=== PATIENT | male | born 1990 | race Caucasian/White ===

== ENCOUNTER 2019-04-26 20:48 | Emergency (ER) | payer MEDICAID ==
[~2019-04-26] VITALS: Ht 180.3 cm; Wt 113.0 kg
[2019-04-26] MEDS ORDERED: normal saline 1000ML IV soln IVB ONE ×2 (21:00→21:45)
[2019-04-26 21:34] LABS: BASOPHILS % (AUTO) 0.4 % (0-1); EOSINOPHILS # (AUTO) 0.2 X10'3 (0-0.9); EOSINOPHILS % (AUTO) 1.7 % (0-6); HEMATOCRIT 46.7 % (42.0-52.0); HEMOGLOBIN 16.3 g/dl (14.0-17.9); LYMPHOCYTES # (AUTO) 4.1 X10'3 (1.1-4.8); LYMPHOCYTES % (AUTO) 44.6 % (21-51); MEAN CORPUSCULAR HEMOGLOBIN 30.7 PG (27.0-31.0); MEAN CORPUSCULAR HGB CONC 34.8 g/dL (33.0-36.5); MEAN CORPUSCULAR VOLUME 88.1 FL (78-98); MEAN PLATELET VOLUME 8.2 FL (7.4-10.4); MONOCYTES # (AUTO) 0.6 X10'3 (0-0.9); MONOCYTES % (AUTO) 6.5 % (2-12); NEUTROPHILS # (AUTO) 4.2 X10'3 (1.8-7.7); NEUTROPHILS % (AUTO) 46.8 % (42-75); PLATELET COUNT 323 X10'3 (140-440); RED CELL DISTRIBUTION WIDTH 13.4 % (11.5-14.5)
[2019-04-26] MEDS ORDERED: magnesium 2GM in 50ml NS 50 ML IV ONE (21:45)
[2019-04-26 21:55] LABS: ALANINE AMINOTRANSFERASE 54 U/L (12-78); ALBUMIN 3.8 G/DL (3.4-5.0); ALKALINE PHOSPHATASE 118 IU/L (46-116); ANION GAP 14 (8-16); ASPARTATE AMINO TRANSFERASE 46 U/L (10-37); BILIRUBIN,TOTAL 0.3 MG/DL (0.1-1.0); BLOOD UREA NITROGEN 6 MG/DL (7-18); BUN/CREATININE RATIO 6.6 (5.4-32.0); CALCIUM 8.4 MG/DL (8.5-10.1); CHLORIDE 106 MMOL/L (99-107); CREATININE 0.91 MG/DL (0.60-1.10); GLUCOSE 110 MG/DL (70-104); POTASSIUM 3.8 MMOL/L (3.5-5.1); SODIUM 144 MMOL/L (135-145); TOTAL CARBON DIOXIDE 23.8 MMOL/L (24-32); TOTAL PROTEIN 7.6 G/DL (6.4-8.2); eGFR > 90 ML/MIN
[2019-04-26 21:56] LABS: ETHANOL 0.387 GM/DL (0.0-0.010)
[2019-04-26 22:03] LABS: WHITE BLOOD COUNT 9.1 X10'3 (4.5-11.0)
--- NOTE | 2019-04-26 22:06 | NUR ---
Pt removed from 4pt restraints. Pt calm and sleeping at this time, VSS.
[2019-04-27 05:56] VITALS: BP 180/91
--- NOTE | 2019-04-27 05:57 | NUR ---
Per Dr Ledezma, no need for accucheck, BS in BMP resulted WDNL. Also stated no need to collect urine at this time.
[2019-04-27] MEDS ORDERED: BUSP10TA3 PO (10:33)
[2019-04-27] MEDS ORDERED: CETI10TA14 PO (10:33)
[2019-04-27] MEDS ORDERED: LISI10TA4 PO (10:33)
[2019-04-27] MEDS ORDERED: CITA40TA PO (10:34)
[2019-04-27] MEDS ORDERED: NALT5POW PO (12:13)
== END 2019-04-27 06:56 | disposition home or self-care (01) ==
LOC: ER 20:50
DX: F10.129 Alcohol abuse with intoxication, unspecified (principal); F32.9 Major depressive disorder, single episode, unspecified; F12.90 Cannabis use, unspecified, uncomplicated; Z79.899 Other long term (current) drug therapy; Y90.9 Presence of alcohol in blood, level not specified
CPT/HCPCS: 36415; 80053; 80320; 85025; 93005; 99284; J3475; J7030

== ENCOUNTER 2019-04-27 09:58 | Emergency (ER) | payer MEDICAID ==
[~2019-04-27] VITALS: Ht 188 cm; Wt 136.4 kg
[2019-04-27] MEDS ORDERED: LISI10TA4 PO (10:33)
[2019-04-27] MEDS ORDERED: BUSP10TA3 PO (10:33)
[2019-04-27] MEDS ORDERED: CETI10TA14 PO (10:33)
[2019-04-27] MEDS ORDERED: CITA40TA PO (10:34)
[2019-04-27] MEDS ORDERED: haloperidol lactate 5mg/ml inj IM PRN (11:05)
[2019-04-27] MEDS ORDERED: haloperidol 5mg tablet PO PRN (11:05)
[2019-04-27] MEDS ORDERED: LORazepam 2 mg/ml vial IV PRN (11:05)
[2019-04-27 11:11] LABS: BASOPHILS % (AUTO) 0.4 % (0-1); EOSINOPHILS # (AUTO) 0.1 X10'3 (0-0.9); EOSINOPHILS % (AUTO) 0.7 % (0-6); HEMATOCRIT 47.2 % (42.0-52.0); HEMOGLOBIN 16.1 g/dl (14.0-17.9); LYMPHOCYTES # (AUTO) 2.4 X10'3 (1.1-4.8); LYMPHOCYTES % (AUTO) 25.5 % (21-51); MEAN CORPUSCULAR HEMOGLOBIN 29.8 PG (27.0-31.0); MEAN CORPUSCULAR HGB CONC 34.1 g/dL (33.0-36.5); MEAN CORPUSCULAR VOLUME 87.6 FL (78-98); MEAN PLATELET VOLUME 8.1 FL (7.4-10.4); MONOCYTES # (AUTO) 0.4 X10'3 (0-0.9); MONOCYTES % (AUTO) 4.6 % (2-12); NEUTROPHILS # (AUTO) 6.5 X10'3 (1.8-7.7); NEUTROPHILS % (AUTO) 68.8 % (42-75); PLATELET COUNT 283 X10'3 (140-440); RED BLOOD COUNT 5.39 X10'6 (4.70-6.10); RED CELL DISTRIBUTION WIDTH 13.4 % (11.5-14.5); WHITE BLOOD COUNT 9.5 X10'3 (4.5-11.0)
[2019-04-27 11:27] LABS: CLARITY,URINE CLEAR (Clear); COLOR,URINE YELLOW (Yellow); GLUCOSE, URINE NEGATIVE (Neg); KETONES,URINE 15 mg/dl (Neg); LEUKOCYTE ESTERASE ,URINE NEGATIVE (Neg); NITRITES, URINE NEGATIVE (Neg); OCCULT BLOOD,URINE NEGATIVE (Neg); PH,URINE 6.5 (4.8-8.0); PROTEIN,URINE NEGATIVE (Neg); UA COLLECTION TYPE CLN CATCH MIDSTREAM; UROBILINOGEN,URINE 0.2 E.U/dL (0.2-1.0)
--- NOTE | 2019-04-27 11:27 | NUR ---
patient has been changed into green scrubs, belongings have been collected and placed into the ambulance bay locker. His girlfriend is visiting and they are talking quietly while she sits at the bedside.
[2019-04-27 11:30] LABS: ALANINE AMINOTRANSFERASE 51 U/L (12-78); ALBUMIN 3.8 G/DL (3.4-5.0); ALBUMIN/GLOBULIN RATIO 1.1 (1.1-1.5); ALKALINE PHOSPHATASE 107 IU/L (46-116); ANION GAP 18 (8-16); ASPARTATE AMINO TRANSFERASE 37 U/L (10-37); BILIRUBIN,TOTAL 0.3 MG/DL (0.1-1.0); BLOOD UREA NITROGEN 6 MG/DL (7-18); CALCIUM 8.5 MG/DL (8.5-10.1); CHLORIDE 108 MMOL/L (99-107); CREATININE 0.75 MG/DL (0.60-1.10); GLUCOSE 84 MG/DL (70-104); POTASSIUM 3.9 MMOL/L (3.5-5.1); SODIUM 147 MMOL/L (135-145); TOTAL CARBON DIOXIDE 21.2 MMOL/L (24-32); TOTAL PROTEIN 7.3 G/DL (6.4-8.2); eGFR > 90 ML/MIN
[2019-04-27 11:35] LABS: URINE AMPHETAMINE SCREEN NEGATIVE (Neg); URINE BARBITUATE SCREEN NEGATIVE (Neg); URINE BENZODIAZEPINES SCREEN NEGATIVE (Neg); URINE CANNABINOID SCREEN POSITIVE (Neg); URINE COCAINE SCREEN NEGATIVE (Neg); URINE METHADONE SCREEN NEGATIVE (Neg); URINE OPIATE SCREEN NEGATIVE (Neg); URINE PHENCYCLIDINE SCREEN NEGATIVE (Neg)
[2019-04-27 11:38] LABS: ETHANOL 0.112 GM/DL (0.0-0.010)
[2019-04-27] MEDS ORDERED: NALT5POW PO (12:13)
--- NOTE | 2019-04-27 12:24 | NUR ---
patient is laying on his right side, he appears to be sleeping.
--- NOTE | 2019-04-27 13:00 | NUR ---
patient is laying on his right side, appears to be asleep.
[2019-04-27] MEDS: busPIRone 5mg tablet PO SCH ×2 (14:58→23:16)
--- NOTE | 2019-04-27 15:12 | NUR ---
Medications given and taken willingly.
[2019-04-27] MEDS: LORazepam 1 MG tablet PO PRN ×2 (15:25→19:08)
--- NOTE | 2019-04-27 15:27 | NUR ---
Ativan 2mg PO given
--- NOTE | 2019-04-27 18:35 | NUR ---
Patient resting comfortably in bed. He denies SI at this time. He states that he feels overwhelmed by many factors but that his problem is ultimately related to his alcohol consumption. Patient states he drinks 1/5 of alcohol per day and has never had a seizure when going through withdrawls. Patient educated to notify me if he feels he is having any symptoms of alcohol withdrawl. Patient requests a meal which should arrive shortly. Patient updated on POC.
--- NOTE | 2019-04-27 19:09 | NUR ---
Patient complains of feeling anxious and requests meds. Ativan is provided.
--- NOTE | 2019-04-27 20:50 | NUR ---
Patient sleeping comfortably in a supine position with even and unlabored breathing.
--- NOTE | 2019-04-27 22:59 | NUR ---
Patient continues to sleep.
--- NOTE | 2019-04-28 00:45 | NUR ---
Patient continues to sleep.
--- NOTE | 2019-04-28 01:32 | NUR ---
Patient continues to sleep.
--- NOTE | 2019-04-28 03:29 | NUR ---
Patient sleeping on his right side.
[2019-04-28] MEDS: busPIRone 5mg tablet PO SCH ×3 (08:03→21:00)
[2019-04-28] MEDS: lisinopril 10 MG tablet PO SCH (08:04)
[2019-04-28] MEDS: citalopram 20mg tablet PO SCH (08:04)
[2019-04-28] MEDS: cetirizine 10mg tablet PO SCH (08:04)
[2019-04-28] MEDS: LORazepam 1 MG tablet PO PRN ×3 (08:39→15:15)
--- NOTE | 2019-04-28 09:00 | NUR ---
Medicated with ativan for shakyness.
--- NOTE | 2019-04-28 11:00 | NUR ---
Nurse to nurse given to Melani at [facility].
--- NOTE | 2019-04-28 13:00 | NUR ---
Sitting up in bed eating lunch.
--- NOTE | 2019-04-28 15:15 | NUR ---
Pt has been medicated with haldol, which he stated did not help. Ativan given.
--- NOTE | 2019-04-28 19:00 | NUR ---
This patient was sleeping at shift change. He awoke, rapidlyl ate his dinner, returned to sleep without interview.
--- NOTE | 2019-04-28 22:56 | NUR ---
Patient sleeping quietly. He is in view from nursing station. Q15 minute rounding being done for patient safety.
--- NOTE | 2019-04-29 07:00 | NUR ---
Pt resting quietly in bed without complaints.
[2019-04-29] MEDS: cetirizine 10mg tablet PO SCH (08:20)
[2019-04-29] MEDS: busPIRone 5mg tablet PO SCH ×3 (08:20→20:14)
[2019-04-29] MEDS: citalopram 20mg tablet PO SCH (08:20)
[2019-04-29] MEDS: lisinopril 10 MG tablet PO SCH (08:22)
--- NOTE | 2019-04-29 09:00 | NUR ---
Pt up for breakfast. Pt c/o shakiness from withdraw from alcohol. Pt received 1mg ativan. No further complaints.
[2019-04-29] MEDS: LORazepam 1 MG tablet PO PRN ×2 (09:02→20:14)
--- NOTE | 2019-04-29 11:00 | NUR ---
Pt laying in bed sleeping without complaints.
--- NOTE | 2019-04-29 13:00 | NUR ---
Pt laying on bed without complaints until just before now when he asked for his buspar which was ordered at 1300. He said he had anxiety.
--- NOTE | 2019-04-29 15:00 | NUR ---
Pt resting quietly in bed, reading; without complaints.
--- NOTE | 2019-04-29 17:00 | NUR ---
Pt visited with and children. Pt displayed appropriate affection towards all three. Pt now laying in bed reading a book without complaints.
--- NOTE | 2019-04-29 18:30 | NUR ---
Pt sitting up quetly reading in his bed. Pt is cooperative with assessment. He states he has not had a BM in 2 days but "I have not really eaten anything, dinner tonight was really the first meal I have had in awhile because when I go on benders I don't eat." PT denies feeling suicidal at this time "I am just mad at myself."
--- NOTE | 2019-04-29 21:00 | NUR ---
PT is medication compliant and requests PRN ativan 1mg which was given for anxiety. He states, "I still feel a little shaky from the withdrawl but it is getting much better. Patients VS are WNL. he uses the restroom.
--- NOTE | 2019-04-30 01:00 | NUR ---
Pt asleep on back, respirations WNL.
--- NOTE | 2019-04-30 03:26 | NUR ---
PT woke up and requested food, given a sandwhich and a cheesestick with a juice.
--- NOTE | 2019-04-30 06:30 | NUR ---
Patient observed resting comfortably in bed, no distress observed.
[2019-04-30] MEDS: naltrexone 50mg tablet PO SCH (08:47)
[2019-04-30] MEDS: cetirizine 10mg tablet PO SCH (08:47)
[2019-04-30] MEDS: lisinopril 10 MG tablet PO SCH (08:48)
[2019-04-30] MEDS: busPIRone 5mg tablet PO SCH ×3 (08:48→20:41)
[2019-04-30] MEDS: citalopram 20mg tablet PO SCH (08:49)
[2019-04-30] MEDS: LORazepam 1 MG tablet PO PRN ×4 (09:46→21:15)
--- NOTE | 2019-04-30 09:46 | NUR ---
Patient reports feeling anxious and sweaty, RN administered PO Ativan 1mg.
--- NOTE | 2019-04-30 12:00 | NUR ---
Patient is moved to another bed to accommodate new admits. With the unit full he reports increased anxiety and requests Ativan. RN provided education on alternatives, deep breathing, hot tea. Patient states that he would like to incorporate those types of things into his life.
--- NOTE | 2019-04-30 15:30 | NUR ---
Spoke with Angelica from [facility] office, reportreceived that she will contact [facility] to see if patient can transfer. Melania wants something stating he is not withdrawing from alcohol. KWESI filled out and faxed to [facility].
--- NOTE | 2019-04-30 18:41 | NUR ---
is spoke to pt, he is supine in bed, he states he is feeling ok, no thoughts of harming himself or others at this time, he is calm, is here to visit
--- NOTE | 2019-04-30 19:38 | NUR ---
pt girlfriend is at bedside, he is quietly talking to her, no s/s of distress observed
--- NOTE | 2019-04-30 20:41 | NUR ---
pt took medications without complaint, alycia, ativan, I told him that it is too early, he said ok, he can have at 2100.
--- NOTE | 2019-04-30 21:44 | NUR ---
pt is supine in bed, eyes closed, no s/s of distress observed, regular non labored breathing present
--- NOTE | 2019-04-30 22:42 | NUR ---
pt is resting on his right side, eyes closed, appears to be asleep, no s/s of distress observed, regular spontaneous breathing present
--- NOTE | 2019-04-30 23:39 | NUR ---
pt is laying on left side, eyes closed. appears to be sleeping no s/s of distress observed, regular breathing observed
--- NOTE | 2019-05-01 00:40 | NUR ---
pt appears to be asleep, eyes closed, regular, non labored breathing present, no s/s of distress observed
--- NOTE | 2019-05-01 01:37 | NUR ---
pt sleeping on left side, unlabored breathing
--- NOTE | 2019-05-01 02:31 | NUR ---
Patient sleeping on his right side with even unlabored breathing.
--- NOTE | 2019-05-01 03:14 | NUR ---
pt is asleep, no s/s of distress observed
--- NOTE | 2019-05-01 04:22 | NUR ---
pt is asleep, no s/s of distress observed, unlabored breathing
--- NOTE | 2019-05-01 05:31 | NUR ---
pt appears to be asleep. laying on right side, eyes closed, no s/s of distress observed
--- NOTE | 2019-05-01 06:05 | NUR ---
pt cooperative with vitals being taken no s/s of distress observed
--- NOTE | 2019-05-01 06:30 | NUR ---
Nursing Note: Pt laying in bed with eyes closed, RR even and unlabored, no S&S of distress, will continue to monitor.
--- NOTE | 2019-05-01 07:58 | NUR ---
Nursing Note: Pt laying in bed, eyes closed, RR even and unlabored, no S&S of distress, will continue to monitor.
[2019-05-01] MEDS: cetirizine 10mg tablet PO SCH (08:35)
[2019-05-01] MEDS: busPIRone 5mg tablet PO SCH ×3 (08:35→20:15)
[2019-05-01] MEDS: naltrexone 50mg tablet PO SCH (08:35)
[2019-05-01] MEDS: citalopram 20mg tablet PO SCH (08:35)
[2019-05-01] MEDS: lisinopril 10 MG tablet PO SCH (08:35)
[2019-05-01] MEDS: LORazepam 1 MG tablet PO PRN (09:47)
--- NOTE | 2019-05-01 10:10 | NUR ---
relieving RN for break, pt is resting quietly on gurney
--- NOTE | 2019-05-01 10:48 | NUR ---
Nursing Note: Pt laying in bed, RR even and unlabored, no S&S of distress, will continue to monitor.
[2019-05-01] MEDS ORDERED: LORazepam 1 MG tablet PO PRN (11:05)
--- NOTE | 2019-05-01 12:49 | NUR ---
Nursing Note: Pt has visitor at the bedside, quietly visiting. Pt expresses he feels anxious. RR even and unlabored, will continue to monitor.
--- NOTE | 2019-05-01 13:14 | NUR ---
Nursing Note: Nurse to nurse, VERENICE Fregoso [facility]. Will continue to monitor.
--- NOTE | 2019-05-01 13:28 | NUR ---
Nursing Note: Received call from [facility] office, pt acce Addendum: 05/01/19 at 1328 by RAVINDER Continue: Pt accepted at [facility], will continue to monitor.
[2019-05-01] MEDS ORDERED: NALT50TA PO (14:25)
--- NOTE | 2019-05-01 14:53 | NUR ---
Nursing Note: Pt sitting up in bed. RR even and unlabored, no S&S of distress, will continue to monitor.
--- NOTE | 2019-05-01 16:20 | NUR ---
Nursing Note: Pt laying in bed, no S&S of distress, will continue to monitor.
--- NOTE | 2019-05-01 17:51 | NUR ---
Nursing Note: Pt laying in bed on his back talking to the pt in the next bed. No S&S of distress, will continue to monitor.
--- NOTE | 2019-05-01 20:09 | NUR ---
pt laying in bed uncovered, in no apparent distress
--- NOTE | 2019-05-01 20:32 | NUR ---
Keerthi [facility] aide wheelchaired pt [facility] to [facility] with all of his belongings escorted by a java developer with security clearance
[2019-05-01 20:45] VITALS: BP 129/79
== END 2019-05-01 20:30 ==
LOC: ER 09:58
DX: F32.9 Major depressive disorder, single episode, unspecified (principal); F12.90 Cannabis use, unspecified, uncomplicated; F10.10 Alcohol abuse, uncomplicated; Z79.899 Other long term (current) drug therapy; Z59.0 Homelessness; Y90.9 Presence of alcohol in blood, level not specified
CPT/HCPCS: 36415; 80053; 80305; 80320; 81003; 84443; 85025; 99285

== ENCOUNTER 2019-05-01 13:43 | Inpatient (IN) | payer MEDICAID ==
[~2019-05-01] VITALS: Ht 188 cm; Wt 125.8 kg
[~2019-05-01 13:43] MED LIST: BUSP10TA3 PO; CETI10TA14 PO; CITA40TA PO; LISI10TA4 PO; NALT5POW PO
[2019-05-01] MEDS ORDERED: acetaminophen 325mg tablet PO PRN ×2 (13:55)
[2019-05-01] MEDS ORDERED: tuberculin, purif. prot. deriv. 5 units/0.1ml ID ONE (13:55)
[2019-05-01] MEDS ORDERED: magnesium hydroxide 30ml (MOM) UD suspension PO PRN (13:55)
[2019-05-01] MEDS ORDERED: mag hydrox/Alum hydrox/simeth 30ml oral suspension PO PRN (13:55)
[2019-05-01] MEDS ORDERED: loperamide 2mg capsule PO PRN (13:55)
[2019-05-01] MEDS ORDERED: LORazepam 1 MG tablet PO PRN (13:55)
[2019-05-01] MEDS ORDERED: NALT50TA PO (14:25)
[2019-05-01 20:30] VITALS: BP 140/94
[2019-05-01] MEDS: busPIRone 5mg tablet PO SCH (22:06)
[2019-05-01] MEDS: hydrOXYzine 25 MG tablet PO PRN (22:06)
[2019-05-01] MEDS ORDERED: NICOTINE POLACRILEX 2 MG LOZENGE BC PRN (22:35)
[2019-05-01] MEDS: traZODone 50mg tablet PO PRN (23:00)
--- NOTE | 2019-05-02 01:15 | NUR ---
VOCATIONAL REHABILITATION TECHNICIAN NOTE: LEGAL HOLD: 5150 for DTS/Suicidal Ideation/Depression THIS SHIFT: Client arrived on unit at 20:30 accompanied by Lizett Campo and . Client reported suicidal ideation involving stepping in front of a train or jumping off a bridge. Client has four prior SA's by overdose. Each time client was found unresponsive and lead to inpatient hospital admits. Client reports drinking 1/2 gallon of Vodka per day. He had his last drink four days ago. Client had some withdrawal symptoms (i.e. shaking, increased anxiety) while in the ED and received Ativan to alleviate symptoms. Client does not feel he is experiencing withdrawal symptoms at this time. Client reports Meth, cocaine, and opiate use for 10 years. Client has hx of childhood trauma related a troubled relationship with his father. Client was cooperative during admission. Client showered, had a skin and physical assessment, personal belongings were inventoried, a snack was offered. Client took PM meds and went to slept.
[2019-05-02] MEDS ORDERED: NICOTINE POLACRILEX 4 MG LOZENGE BC PRN (03:25)
[2019-05-02] MEDS: busPIRone 5mg tablet PO SCH ×3 (07:55→20:37)
[2019-05-02] MEDS: lisinopril 10 MG tablet PO SCH (07:56)
[2019-05-02] MEDS: nicotine 21mg patch - 24 hr TD SCH (07:58)
[2019-05-02] MEDS: cetirizine 10mg tablet PO SCH (07:58)
[2019-05-02] MEDS ORDERED: nicotine 21mg patch - 24 hr TD SCH (08:00)
[2019-05-02] MEDS ORDERED: citalopram 20mg tablet PO SCH (08:00)
[2019-05-02 08:14] VITALS: BP 125/86
[2019-05-02] MEDS: naltrexone 50mg tablet PO SCH (08:15)
[2019-05-02 09:12] LABS: HEMOGLOBIN A1C 5.4 % (4.5-6.2)
[2019-05-02 09:13] LABS: CHOL/HDL RATIO 3.8 (0.00-4.99); CHOLESTEROL 149 MG/DL (0-200); HDL CHOLESTEROL 39 MG/DL (35-60); LDL CHOLESTEROL 93 MG/DL (50-100); TRIGLYCERIDES 165 MG/DL (20-135)
--- NOTE | 2019-05-02 15:42 | NUR ---
Progress note: Nursing Progress Note: Darryl Legal hold: 5150 Client on involuntary status for DTS Report received from nurse with use of SBAR: Andreia Estrella Why are they here: Client is here on a 5150 hold as DTS. Client verbalized that he wanted to step in front of a train to end his life. 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 Assessment: What has happened this shift: Received report on client who was in bed resting. No somatic complaints upon initial assessment. Client pulse rate was 97 initially but dropped to 84 with subsequent check.Compliant with assessment and medications. Dr. Fernandes in to see patient about 0730. PPD was placed on LFA at 1200 hours today. Client took afternoon medications and then continued to visit with peers. Behavior has been appropriate all shift. Client seems focused on sobriety as he does not want to, "hurt my family anymore". S/I, H/I: Denies A/VH: Denies Sleep: ADL's: performed: Yes Group attendance: no Were meds taken: yes Any med S/E: None reported by patient or observed. Mental Status Exam Appearance: Eye contact: direct Behavior: Pleasant and cooperative Speech: minimal, soft tone, normal rate/rhythm Mood: Pleasant Affect: congruent to mood Thought process: Thought Content: On current needs Cognition: A &O X4 Insight: Fair Judgment: Fair Interventions: PRN's used: Ativan x 1 at 1400 with good effect noted. Therapeutic interventions: Continued therapeutic support and medication management needed to provide stabilization, prevent decompensation, improve coping mechanisms decreasing risk to patient and re-admittance. Restraints/seclusion/emergency medication: N/A Justification of Continued Inpatient Treatment: Pt. is unable to provide for his own food, clothing and correction. Continued therapeutic support and medication management needed to provide stabilization, prevent decompensation, decreasing risk to patient and re-admittance
[2019-05-02 19:00] VITALS: BP 143/102
[2019-05-02] MEDS: traZODone 50mg tablet PO PRN (20:38)
[2019-05-02] MEDS: hydrOXYzine 25 MG tablet PO PRN (20:48)
--- NOTE | 2019-05-03 02:21 | NUR ---
NURSING PROGRESS NOTE Legal hold: 5150 Exp 05/04 @ 2030 Client on involuntary status for DTS Report received from nurse with use of SBAR: Mynor Why are they here: Client is here on a 5150 hold as DTS. Client verbalized that he wanted to step in front of a train to end his life. Pt has a long -standing history of depression, with the last 1-1/2-month or so he has progressively been feeling more depressed. Client verbalized that he wanted to step in fron of a train to end his life. 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 Assessment: What has happened this shift: Pt was in T.V room talking on phone at shift change. Pt states he is settling in here at [facility] and expresses his gratitude. Pt states "I want and need to get help" "I don't want to hurt my family any more and if I don't get help now I am not sure what will happen." Pt is goal-oriented and hopes to be able obtain counseling after discharged. Pt still has some apprehension about discharge and is afraid he will be "kicked out to earlier", explained to keep in communication with his provider and nurses and explained that he is not going to be "kicked out." Encouraged pt to attend groups, pt states he got the tail end of one, but will be more proactive tomorrow. `Pt reports his anxiety 04/26, Atarax administered with effect. Nicotine patch was removed prior to bedtime. Pt was administered Trazadone with effect. Pt sleeping with no acute distress noted. Will continue to monitor. S/I, H/I: Pt denies. None observed A/VH: Pt denies. None observed. Sleep: See sleep assessment notation - Trazadone 50 mg administered ADL's: performed: Independent Group attendance: shift stacker, no group Were meds taken: Medication compliant Any med S/E: None reported or observed. Mental Status Exam Appearance: Neat and clean, wearing green unit scrubs Eye contact: Direct Behavior: Pleasant, cooperative, mildly anxious Speech: Minimal, soft tone, normal rate/rhythm Mood: Pleasant, hopeful Affect: Blunted Thought process: Linear Thought Content: Goal oriented Cognition: A&O X4 Insight: Fair Judgment: Fair Interventions: PRN's used: Atarax Therapeutic interventions: Therapeutic interventions: 1:1 assessment, therapeutic conversation, provide safe and supportive environment, encouragement to attend groups, medication administration/education/ monitoring, Q 15 min safety checks. Restraints/seclusion/emergency medication: N/A Justification of Continued Inpatient Treatment: Pt. is unable to provide for his own food, clothing and mcc. Continued therapeutic support and medication management needed to provide stabilization, prevent decompensation, decreasing risk to patient and re-admittance
[2019-05-03] MEDS ORDERED: citalopram 20mg tablet PO ONE (07:55)
[2019-05-03 08:00] VITALS: BP 152/97
[2019-05-03] MEDS: venlafaxine XR 75mg capsule (Q24H) PO SCH (08:37)
[2019-05-03] MEDS: busPIRone 5mg tablet PO SCH ×3 (08:38→22:04)
[2019-05-03] MEDS: lisinopril 10 MG tablet PO SCH (08:38)
[2019-05-03] MEDS: cetirizine 10mg tablet PO SCH (08:38)
[2019-05-03] MEDS: naltrexone 50mg tablet PO SCH (08:38)
[2019-05-03] MEDS: nicotine 21mg patch - 24 hr TD SCH (08:38)
[2019-05-03] MEDS: hydrOXYzine 25 MG tablet PO PRN ×2 (14:57→22:07)
--- NOTE | 2019-05-03 16:55 | NUR ---
Nursing Progress Note Legal hold: 5150 Client on involuntary status for DTS Report received from nurse with use of SBAR: Andreia Estrella Why are they here: Client is here on a 5150 hold as DTS. Client verbalized that he wanted to step in front of a train to end his life. 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 Assessment: What has happened this shift: Patient up and visible on the unit today. Patient attended all meals in both groups; though, patient did not stay for all of group. Patient did request PRN medication for anxiety once today and he received Ararax. Patient continues to endorse depression but denies suicidal thoughts today. Patient denies auditory hallucinations at this time, but states he still has racing thoughts. Will continue to encourage group attendance with participation. S/I, H/I: Denies A/VH: Denies Sleep: ADL's: performed: Yes Group attendance: partial Were meds taken: yes Any med S/E: None reported by patient or observed. Mental Status Exam Appearance: Eye contact: direct Behavior: Pleasant and cooperative Speech: minimal, soft tone, normal rate/rhythm Mood: Pleasant Affect: congruent to mood Thought process: intact Thought Content: On current needs Cognition: A &O X4 Insight: Fair Judgment: Fair Interventions: PRN's used: atarax x 1 Therapeutic interventions: Continued therapeutic support and medication management needed to provide stabilization, prevent decompensation, improve coping mechanisms decreasing risk to patient and re-admittance. Restraints/seclusion/emergency medication: N/A Justification of Continued Inpatient Treatment: Pt. is unable to provide for his own food, clothing and group home. Continued therapeutic support and medication management needed to provide stabilization, prevent decompensation, decreasing risk to patient and re-admittance
[2019-05-03 19:00] VITALS: BP 152/71
[2019-05-03] MEDS: traZODone 50mg tablet PO PRN (22:07)
--- NOTE | 2019-05-04 03:56 | NUR ---
Nursing Progress Note Legal hold: 5150 Client on involuntary status for DTS Report received from VERENICE Lowe with use of SBAR. Why are they here: Client is here on a 5150 hold as DTS. Client verbalized that he wanted to step in front of a train to end his life. 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 Assessment: What has happened this shift: This patient is alert and oriented. He socializes with others and visits with his in the day room. This patient states anxiety is present with mild depression too. He states goals to recover from his alcohol addiction and attempt to gain favor from his family. He states he hopes that his who is from him will take him back. "I have two young children too!" This patient admits to continuing depression and anxiety. He denies S/I, H/I, or any hallucinations. The patient is advised that he is in a safe place. S/I, H/I: Denies A/VH: Denies Sleep: Will tabulate later in am. ADL's: Performed: Yes Group attendance: One group on day shift. Were meds taken: Mediation compliant. Any med S/E: None reported by patient or observed. Mental Status Exam Appearance: Clean and well groomed. Eye contact: Direct Behavior: Pleasant and cooperative. Speech: Minimal, soft tone, normal rate/rhythm Mood: Pleasant Affect: Congruent to mood Thought process: Intact Thought Content: On current needs. Cognition: A &O X4 Insight: Fair Judgment: Fair Interventions: PRN's used: Atarax, Ativan. Therapeutic interventions: Continued therapeutic support and medication management needed to provide stabilization, prevent decompensation, improve coping mechanisms decreasing risk to patient and re-admittance. Restraints/seclusion/emergency medication: N/A Justification of Continued Inpatient Treatment: Pt. is unable to provide for his own food, clothing and halfway. Continued therapeutic support and medication management needed to provide stabilization, prevent decompensation, decreasing risk to patient and re-admittance
[2019-05-04] MEDS: nicotine 21mg patch - 24 hr TD SCH (07:19)
[2019-05-04] MEDS: cetirizine 10mg tablet PO SCH (07:20)
[2019-05-04] MEDS: venlafaxine XR 75mg capsule (Q24H) PO SCH (07:20)
[2019-05-04] MEDS: naltrexone 50mg tablet PO SCH (07:21)
[2019-05-04] MEDS: busPIRone 5mg tablet PO SCH ×3 (07:21→20:22)
[2019-05-04] MEDS: lisinopril 10 MG tablet PO SCH (07:24)
[2019-05-04 08:00] VITALS: BP 131/87
--- NOTE | 2019-05-04 11:37 | NUR ---
Nursing Progress Note / Legal hold: 5150 expires 05/04/19 at 2030 Client on involuntary status for DTS Report received from nurse with use of SBAR: Andreia Mcgill RN Why are they here: Client is here on a 5150 hold as DTS. Client verbalized that he wanted to step in front of a train to end his life. 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 Assessment: What has happened this shift: Patient is pleasant and cooperative. He attends meals and groups. He is visible on the unit and friendly to staff and other patients. He spent some time in hiss room reading the bible. He likes the chapter on Mian. He says he generally attends spiritism at [facility] or [facility]. He recently completed the [employer] [facility] at [facility], but relapsed three months later. He believes the medications are helping him. He says the Atarax PRN is very helpful and doesnt make him sleepy. He plans to stay voluntary. I need to stay here. I need the support and the medication. I need help. He has been drinking heavily since age 15. He has lost three jobs in the last three months. His fiance has from him, but is still talking to him. He has two children with her ages two and four. That is his motivation. S/I, H/I: Passive A/VH: Denies Sleep: WNL ADL's: performed: Yes Group attendance: Yes Were meds taken: yes Any med S/E: Dizziness Mental Status Exam Appearance: clean and neat Eye contact: direct Behavior: Pleasant and cooperative Speech: minimal, soft tone, normal rate/rhythm Mood: I am getting better. Affect: congruent to mood Thought process: intact Thought Content: On current needs Cognition: A &O X4 Insight: Fair Judgment: Fair Interventions: PRN's used: Atarax x 1 Therapeutic interventions: Continued therapeutic support and medication management needed to provide stabilization, prevent decompensation, improve coping mechanisms decreasing risk to patient and re-admittance. Restraints/seclusion/emergency medication: N/A Justification of Continued Inpatient Treatment: Pt. is unable to provide for his own food, clothing and half-way. Continued therapeutic support and medication management needed to provide stabilization, prevent decompensation, decreasing risk to patient and re-admittance
[2019-05-04] MEDS: hydrOXYzine 25 MG tablet PO PRN ×2 (12:06→20:22)
--- NOTE | 2019-05-04 12:13 | NUR ---
PPD READ AT 1213 AND WAS NEGATIVE. NOTED IN CHART
[2019-05-04 19:57] VITALS: BP 138/81
[2019-05-04] MEDS: traZODone 50mg tablet PO PRN (20:22)
--- NOTE | 2019-05-04 23:05 | NUR ---
Nursing Progress Note Legal hold: 5150 Client on involuntary status for DTS Report received from VERENICE Constantino with use of SBAR. Why are they here: Client is here on a 5150 hold as DTS. Client verbalized that he wanted to step in front of a train to end his life. 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 Assessment: What has happened this shift: The patient was seen in his room at bedside for 1:1. He is alert and cooperative with assessment. He sits down to talk. He presents anxious and depressed. The patient reports "I'm done with alcohol, I've got 2 kids that need their Daddy." He says that at this point, his major focus is on sobriety. "I went through the [place] program and graduated. I'll do it again if necessary." The patient states his motivation comes from his 2 children. The patient's second major goal is to get his Fiance to believe in him again. The patient spent the evening watching TV in the Rec room, ate snacks, took his HS meds, then went to bed. S/I, H/I: Denies A/VH: Denies Sleep: See sleep hours. ADL's: Independent Group attendance: No groups on bi application developer. Were meds taken: Mediation compliant. Any med S/E: None reported by patient or observed. Mental Status Exam Appearance: Clean and well groomed. Wears green scrubs. Eye contact: Direct Behavior: Pleasant and cooperative. Paces, watching TV. Speech: Minimal, soft tone, normal rate/rhythm Mood: Depressed. Affect: Blunted Thought process: Logical, linear Thought Content: On current needs. Cognition: A &O X4 Insight: Fair Judgment: Fair Interventions: PRN's used: Atarax. Therapeutic interventions: Continued therapeutic support and medication management needed to provide stabilization, prevent decompensation, improve coping mechanisms decreasing risk to patient and re-admittance. Restraints/seclusion/emergency medication: N/A Justification of Continued Inpatient Treatment: Pt. is unable to provide for his own food, clothing and half-way. Continued therapeutic support and medication management needed to provide stabilization, prevent decompensation, decreasing risk to patient and re-admittance
[2019-05-05] MEDS: venlafaxine XR 75mg capsule (Q24H) PO SCH (07:22)
[2019-05-05] MEDS: cetirizine 10mg tablet PO SCH (07:22)
[2019-05-05] MEDS: busPIRone 5mg tablet PO SCH ×3 (07:23→20:41)
[2019-05-05] MEDS: lisinopril 10 MG tablet PO SCH (07:24)
[2019-05-05] MEDS: naltrexone 50mg tablet PO SCH (07:25)
[2019-05-05] MEDS: nicotine 21mg patch - 24 hr TD SCH (07:25)
[2019-05-05 07:46] VITALS: BP 116/83
[2019-05-05] MEDS: hydrOXYzine 25 MG tablet PO PRN ×3 (07:58→20:40)
--- NOTE | 2019-05-05 14:37 | NUR ---
Nursing Progress Note: Darryl Legal hold: 5150 Client on involuntary status for DTS Report received from Vivian HICKS Why are they here: Client is here on a 5150 hold as DTS. Client verbalized that he wanted to step in front of a train to end his life. 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 Assessment: What has happened this shift: Initially, client was resting in his bed to begin the shift. On assessment, client was calm and cooperative with all aspects of care. He is medication compliant and is focused on discharge goals which are to live with a relative, work in construction and remain sober. Visible on unit and social with staff as well as his peer group. Client participated in group activities today and seems motivated to discharge and remain sober. He contracts readily for safe unit behaviors and will seek staff if feelings change. S/I, H/I: Denies A/VH: Denies Sleep: See sleep hours. 6.25 ADL's: Independent Group attendance: Were meds taken: Mediation compliant. Any med S/E: None reported by patient or observed. Mental Status Exam Appearance: Clean and well groomed. Wears green scrubs. Eye contact: Direct Behavior: Pleasant and cooperative. Speech: Minimal, soft tone, normal rate/rhythm Mood: Depressed. Affect: Blunted Thought process: Logical, linear Thought Content: On current needs. Cognition: A &O X4 Insight: Fair Judgment: Fair Interventions: PRN's used: Atarax. Therapeutic interventions: Continued therapeutic support and medication management needed to provide stabilization, prevent decompensation, improve coping mechanisms decreasing risk to patient and re-admittance. Restraints/seclusion/emergency medication: N/A Justification of Continued Inpatient Treatment: Pt. is unable to provide for his own food, clothing and long term. Continued therapeutic support and medication management needed to provide stabilization, prevent decompensation, decreasing risk to patient and re-admittance
[2019-05-05 19:00] VITALS: BP 146/90
--- NOTE | 2019-05-06 04:38 | NUR ---
RN PROGRESS NOTE: LEGAL HOLD: 5150 for DTS. Report received from KURT Flores REASON FOR ADMIT: Client verbalized that he wanted to step in front of a train to end his life. History of poly substance use DO to include, ETOH, Meth and opiates. ASSESSMENT: THIS SHIFT: Client was out on unit. He is pleasant and cooperative. Reported, "I kept my nicotine patch on and it gave me nightmares." This RN offered to remove patch but client stated, "I took it off and threw it in the trash." The client was encouraged to let RN's remove and dispose of patch. The client agreed. Client is cooperative. Reports some improvement in mood. S/I, H/I: Denies A/VH: Denies ADL's: Independent Were meds taken: Mediation compliant. Any med S/E: None reported by patient or observed. MSE: Appearance: Clean and well groomed. Wears green scrubs. Eye contact: Direct Behavior: Pleasant and cooperative. Speech: Normal rate/rhythm. Mood: Depressed. Affect: Blunted Thought process: Logical, linear Thought Content: On current needs. Cognition: A &O X4 Insight: Fair Judgment: Fair INTERVENTIONS: PRN's used: Atarax and Trazodone. Therapeutic interventions: 1:1 support, medications. Restraints/seclusion/emergency medication: N/A Justification of Continued Inpatient Treatment: Client needs continued support for mood stabilization.
[2019-05-06 07:38] VITALS: BP 143/70
[2019-05-06] MEDS: nicotine 21mg patch - 24 hr TD SCH (08:00)
[2019-05-06] MEDS: venlafaxine XR 75mg capsule (Q24H) PO SCH (09:02)
[2019-05-06] MEDS: busPIRone 5mg tablet PO SCH ×3 (09:02→20:49)
[2019-05-06] MEDS: naltrexone 50mg tablet PO SCH (09:03)
[2019-05-06] MEDS: cetirizine 10mg tablet PO SCH (09:03)
[2019-05-06] MEDS: lisinopril 10 MG tablet PO SCH (09:04)
[2019-05-06] MEDS: hydrOXYzine 25 MG tablet PO PRN (09:28)
--- NOTE | 2019-05-06 13:24 | NUR ---
Initial: eating well, great appetite, average PO Intake 75-100%. Patient is meeting needs. Has h/o EtoH, would benefit from thiamine and folic acid supplementation. Recommend: 1. continue regular diet 2. patient may benefit from thiamine and folic acid d/t h/o EtOH, attempted call to , no voicemail available 3. weekly wts 4. Bowel care if constipation Addendum: 05/06/19 at [address] Amended: Links added.
--- NOTE | 2019-05-06 16:12 | NUR ---
Nursing Progress Note: Legal hold: 5250 Client on involuntary status for DTS Report received from Lela HICKS Why are they here: Client is here on a 5150 hold as DTS. Client verbalized that he wanted to step in front of a train to end his life. 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 Assessment: What has happened this shift: Received Pt in bed sleeping w/o distress at change of shift. Pt awoke for breakfast and took AM meds w/o issue. Discussed addiction issues with ETOH and rehab he has been through. Appears motivated in conversation to engage in Tx and 12 step work. Discussed basic recovery principles and ways he can set himself up for success upon discharge. Received PRN atarax in AM for anxiety with good effect. Pt is calm and cooperative with good insight and poor judgement. Engaged in unit activities, yet isolated in room with much of his free time. S/I, H/I: Denies A/VH: Denies Sleep: See sleep hours. 6.25 ADL's: Independent Group attendance: Were meds taken: Mediation compliant. Any med S/E: None reported by patient or observed. Mental Status Exam Appearance: Clean and well groomed. Wears green scrubs. Eye contact: Direct Behavior: Pleasant and cooperative. Speech: Minimal, soft tone, normal rate/rhythm Mood: Depressed. Affect: Blunted Thought process: Logical, linear Thought Content: On current needs. Cognition: A &O X4 Insight: Fair Judgment: Fair Interventions: PRN's used: Atarax. Therapeutic interventions: Continued therapeutic support and medication management needed to provide stabilization, prevent decompensation, improve coping mechanisms decreasing risk to patient and re-admittance. Restraints/seclusion/emergency medication: N/A Justification of Continued Inpatient Treatment: Pt. is unable to provide for his own food, clothing and detention. Continued therapeutic support and medication management needed to provide stabilization, prevent decompensation, decreasing risk to patient and re-admittance
[2019-05-06] MEDS ORDERED: venlafaxine XR 37.5mg cap (Q24H) PO ONE (19:15)
[2019-05-06 20:00] VITALS: BP 154/82
[2019-05-06] MEDS: traZODone 50mg tablet PO PRN (20:50)
[2019-05-06] MEDS: hydrOXYzine 25 MG tablet PO SCH (20:50)
--- NOTE | 2019-05-07 00:11 | NUR ---
Nursing Progress Note: Legal hold: 5250 Client on involuntary status for DTS Report received from KURT Constantino Why are they here: Client is here on a 5150 hold as DTS. Client verbalized that he wanted to step in front of a train to end his life. 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 Assessment: What has happened this shift: Patient is up walking the lockwood and interacting wit another patient at the change of shift. He is cooperative for a a 1;1 assessment at his bedside. He denies SI and states this time is different stating "I came in this time because I want help." He reports a cycle of getting sober and relapsing, stating his father is a trigger. Patient verbalizes wanting to work the 12 steps to remain sober, and understands that therapy may be useful to help work with childhood trauma that could be harming his recovery process. He verbalizes he not only want to do this for himself but his children. Patient is cooperative for HS medications and requests Trazodone this evening in hopes he will sleep better than last evening. S/I, H/I: Denies A/VH: Denies Sleep: See sleep assessment ADL's: Independent Group attendance: No groups this shift Were meds taken: yes Any med S/E: None reported by patient or observed. Mental Status Exam Appearance: Clean and well groomed. Wears green scrubs. Eye contact: Direct Behavior: Pleasant and cooperative. Speech:Soft tone, normal rate/rhythm Mood: Depressed Affect: Congruent to mood Thought process: Logical, linear Thought Content: recovery, therapy Cognition: A &O X4 Insight: Fair Judgment: Fair Interventions: PRN's used: trazodone Therapeutic interventions: Continued therapeutic support and medication management needed to provide stabilization, prevent decompensation, improve coping mechanisms decreasing risk to patient and re-admittance. Restraints/seclusion/emergency medication: N/A Justification of Continued Inpatient Treatment: Pt. is unable to provide for his own food, clothing and mcfp. Continued therapeutic support and medication management needed to provide stabilization, prevent decompensation, decreasing risk to patient and re-admittance
[2019-05-07] MEDS: busPIRone 5mg tablet PO SCH ×3 (07:26→20:46)
[2019-05-07] MEDS: lisinopril 10 MG tablet PO SCH (07:27)
[2019-05-07] MEDS: naltrexone 50mg tablet PO SCH (07:29)
[2019-05-07] MEDS: hydrOXYzine 25 MG tablet PO SCH ×3 (07:29→20:46)
[2019-05-07] MEDS: cetirizine 10mg tablet PO SCH (07:30)
[2019-05-07] MEDS ORDERED: venlafaxine XR 75mg capsule (Q24H) PO SCH (08:00)
[2019-05-07 08:19] VITALS: BP 138/75
--- NOTE | 2019-05-07 14:49 | NUR ---
Nursing Progress Note: Darryl Legal hold: 5250 Client on involuntary status for DTS Report received from Lela CALDERA Why are they here: Client is here on a 5150 hold as DTS. Client verbalized that he wanted to step in front of a train to end his life. 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 Assessment: What has happened this shift: Client was awake and in his bed at shift change. Pleasant and social with staff as well as his peers. No somatic complaints this am. 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 Compliant with all aspects of care. Appetite is good. Client has been busy this shift arranging discharge plans to include living arrangements and employment continuation. Attended groups and is future oriented. Client was informed today to anticipate a discharge tomorrow. Client expressed an interest in discharging tomorrow and states that he has his affairs in order. S/I, H/I: Denies A/VH: Denies Sleep: See sleep assessment ADL's: Independent Group attendance: yes Were meds taken: yes Any med S/E: None reported by patient or observed. Mental Status Exam Appearance: Clean and well groomed. Wears green scrubs. Eye contact: Direct Behavior: Pleasant and cooperative. Speech:Soft tone, normal rate/rhythm Mood: Depressed Affect: Congruent to mood Thought process: Logical, linear Thought Content: recovery, therapy Cognition: A &O X4 Insight: Fair Judgment: Fair Interventions: PRN's used: Therapeutic interventions: Continued therapeutic support and medication management needed to provide stabilization, prevent decompensation, improve coping mechanisms decreasing risk to patient and re-admittance. Restraints/seclusion/emergency medication: N/A Justification of Continued Inpatient Treatment: Pt. is unable to provide for his own food, clothing and mcc. Continued therapeutic support and medication management needed to provide stabilization, prevent decompensation, decreasing risk to patient and re-admittance
--- NOTE | 2019-05-07 15:03 | NUR ---
eating well, great appetite, average PO Intake 75-100%. Patient is meeting needs. Has h/o EtoH, would benefit from thiamine and folic acid supplementation., d/w RN who will d/w . Recommend: 1. continue regular diet 2. patient may benefit from thiamine and folic acid d/t h/o EtOH 3. weekly wts 4. Bowel care if constipation Addendum: 05/07/19 at [address] Amended: Links added.
[2019-05-07] MEDS ORDERED: venlafaxine XR 37.5mg cap (Q24H) PO ONE (15:10)
[2019-05-07] MEDS ORDERED: hydrOXYzine 25 MG tablet PO PRN (16:25)
[2019-05-07 20:53] VITALS: BP 127/77
--- NOTE | 2019-05-08 01:41 | NUR ---
Nursing Progress Note: Legal hold: 5250 Client on involuntary status for DTS Report received from VERENICE Lord Why are they here: Client is here on a 5150 hold as DTS. Client verbalized that he wanted to step in front of a train to end his life. 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 Assessment: What has happened this shift: Patient is seen on the unit socializing with other piers at change of shift. He reports being happy about discharging tomorrow. Patient is future oriented stating he is going to his cousins which is a good place and has a job already lined up. He reports knowing he needs to go to AA, and seeing a therapist would be helpful as well. However patient states "I did pretend to go see my Therapist before, I didn't like them." and suggests that finding a new therapist would probably be beneficial. Patient compliant with HS medications. S/I, H/I: Denies A/VH: Denies Sleep: See sleep assessment ADL's: Independent Group attendance: No groups this shift Were meds taken: yes Any med S/E: None reported by patient or observed. Mental Status Exam Appearance: Clean and well groomed. Wears green scrubs. Eye contact: Direct Behavior: Pleasant and cooperative. Speech:Soft tone, normal rate/rhythm Mood: Depressed Affect: Congruent to mood Thought process: Logical, linear Thought Content: Recovery, therapy, discharge plans Cognition: A &O X4 Insight: Fair Judgment: Fair Interventions: PRN's used: None Therapeutic interventions: Continued therapeutic support and medication management needed to provide stabilization, prevent decompensation, improve coping mechanisms decreasing risk to patient and re-admittance. Restraints/seclusion/emergency medication: N/A Justification of Continued Inpatient Treatment: Pt. is unable to provide for his own food, clothing and long term. Continued therapeutic support and medication management needed to provide stabilization, prevent decompensation, decreasing risk to patient and re-admittance
[2019-05-08] MEDS: hydrOXYzine 25 MG tablet PO SCH ×2 (07:17→13:36)
[2019-05-08] MEDS: lisinopril 10 MG tablet PO SCH (07:19)
[2019-05-08] MEDS: cetirizine 10mg tablet PO SCH (07:19)
[2019-05-08] MEDS: busPIRone 5mg tablet PO SCH ×2 (07:20→12:49)
[2019-05-08 07:47] VITALS: BP 145/88
[2019-05-08] MEDS ORDERED: venlafaxine XR 75mg capsule (Q24H) PO SCH (08:00)
[2019-05-08] MEDS: naltrexone 50mg tablet PO SCH (08:32)
[2019-05-08] MEDS ORDERED: LISI10TA4 PO (12:26)
[2019-05-08] MEDS ORDERED: BUSP30TA2 PO (12:26)
[2019-05-08] MEDS ORDERED: VENL225T3 PO (12:26)
[2019-05-08] MEDS ORDERED: NICO-668 BC (12:26)
[2019-05-08] MEDS ORDERED: NALT50TA PO (12:26)
[2019-05-08] MEDS ORDERED: HYDR50TA65 PO (12:26)
--- NOTE | 2019-05-08 12:51 | NUR ---
Nursing Progress note: Darryl Client is anticipating discharge today. He is compliant with all aspects his care and medications. 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 Client attended group today and has been visible and social on the unit today. No somatic complaints.
--- NOTE | 2019-05-08 14:22 | NUR ---
Discharge note: Client discharging today in the company of family. All property has been returned to the client and client has follow up appointment scheduled for 2018 with [facility] on May 28, 2019. Patient condition has greatly improved since admission and client denies any feelings of self harm or harm to others. Client has prescriptions and information on how to fill at [facility] in [place]. Client understands all conditions of discharge as well as community resources available locally. 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 Client states that he has no knowledge deficits as it pertains to his dicharge from this facility.
== END 2019-05-08 14:50 | disposition short-term general hospital (02) | DRG 751 ==
LOC: ADULT MH 13:43
PROVIDERS: ADMIT Psychiatry & Neurology Psychiatry; ATTEND Psychiatry & Neurology Psychiatry
DX: F33.2 Major depressive disorder, recurrent severe without psychotic features (principal); R45.851 Suicidal ideations; F15.90 Other stimulant use, unspecified, uncomplicated; F10.20 Alcohol dependence, uncomplicated; F43.10 Post-traumatic stress disorder, unspecified; E66.9 Obesity, unspecified; F17.220 Nicotine dependence, chewing tobacco, uncomplicated; F17.200 Nicotine dependence, unspecified, uncomplicated; F41.1 Generalized anxiety disorder; I10 Essential (primary) hypertension; Z79.899 Other long term (current) drug therapy; Z81.1 Family history of alcohol abuse and dependence; Z56.0 Unemployment, unspecified; Z71.6 Tobacco abuse counseling; Z59.0 Homelessness; Z68.35 Body mass index [BMI] 35.0-35.9, adult
CPT/HCPCS: 36415; 80061; 83036; 87081; 99285; Z7610

== ENCOUNTER 2019-08-14 00:54 | Emergency (ER) | payer MEDICAID ==
[~2019-08-14] VITALS: Ht 188 cm; Wt 113.6 kg
[~2019-08-14 00:54] MED LIST changes: -BUSP10TA3 PO; +BUSP30TA2 PO; -CITA40TA PO; +HYDR50TA65 PO; +NALT50TA PO; -NALT5POW PO; +NICO-668 BC; +VENL225T3 PO
[2019-08-14 01:34] LABS: ALANINE AMINOTRANSFERASE 17 U/L (12-78); ALBUMIN 3.9 G/DL (3.4-5.0); ALBUMIN/GLOBULIN RATIO 1.3 (1.1-1.5); ALKALINE PHOSPHATASE 79 IU/L (46-116); ANION GAP 12 (8-16); ASPARTATE AMINO TRANSFERASE 11 U/L (10-37); BILIRUBIN,TOTAL 0.5 MG/DL (0.1-1.0); BLOOD UREA NITROGEN 10 MG/DL (7-18); BUN/CREATININE RATIO 11.8 (5.4-32.0); CHLORIDE 101 MMOL/L (99-107); CREATININE 0.85 MG/DL (0.60-1.10); GLUCOSE 94 MG/DL (70-104); LIPASE 119 U/L (73-393); POTASSIUM 3.8 MMOL/L (3.5-5.1); SODIUM 135 MMOL/L (135-145); TOTAL CARBON DIOXIDE 22.2 MMOL/L (24-32); eGFR > 90 ML/MIN
[2019-08-14 01:37] LABS: BASOPHILS # (AUTO) 0.1 X10'3 (0-0.2); BASOPHILS % (AUTO) 0.4 % (0-1); EOSINOPHILS # (AUTO) 0.2 X10'3 (0-0.9); EOSINOPHILS % (AUTO) 1.6 % (0-6); HEMATOCRIT 45.4 % (42.0-52.0); HEMOGLOBIN 15.8 g/dl (14.0-17.9); LYMPHOCYTES # (AUTO) 3.2 X10'3 (1.1-4.8); LYMPHOCYTES % (AUTO) 21.2 % (21-51); MEAN CORPUSCULAR HEMOGLOBIN 30.2 PG (27.0-31.0); MEAN CORPUSCULAR HGB CONC 34.8 g/dL (33.0-36.5); MEAN CORPUSCULAR VOLUME 86.6 FL (78-98); MEAN PLATELET VOLUME 8.1 FL (7.4-10.4); MONOCYTES % (AUTO) 6.8 % (2-12); NEUTROPHILS # (AUTO) 10.5 X10'3 (1.8-7.7); PLATELET COUNT 295 X10'3 (140-440); RED BLOOD COUNT 5.24 X10'6 (4.70-6.10); RED CELL DISTRIBUTION WIDTH 13.7 % (11.5-14.5)
[2019-08-14 01:50] LABS: CLARITY,URINE CLEAR (Clear); COLOR,URINE YELLOW (Yellow); GLUCOSE, URINE NEGATIVE (Neg); KETONES,URINE NEGATIVE (Neg); LEUKOCYTE ESTERASE ,URINE NEGATIVE (Neg); NITRITES, URINE NEGATIVE (Neg); OCCULT BLOOD,URINE NEGATIVE (Neg); PH,URINE 5.5 (4.8-8.0); PROTEIN,URINE NEGATIVE (Neg); UROBILINOGEN,URINE 0.2 E.U/dL (0.2-1.0)
[2019-08-14 01:51] LABS: UA COLLECTION TYPE CLN CATCH MIDSTREAM
[2019-08-14] MEDS ORDERED: MAGN296S50 PO (01:51)
[2019-08-14] MEDS ORDERED: BISA-155 PO (01:51)
[2019-08-14 01:58] VITALS: BP 170/106
== END 2019-08-14 02:01 | disposition home or self-care (01) ==
LOC: ER 00:55
DX: K59.00 Constipation, unspecified (principal); R10.32 Left lower quadrant pain; F12.90 Cannabis use, unspecified, uncomplicated; F32.9 Major depressive disorder, single episode, unspecified; F10.99 Alcohol use, unspecified with unspecified alcohol-induced disorder; Z72.89 Other problems related to lifestyle; Z88.0 Allergy status to penicillin; Z79.899 Other long term (current) drug therapy; Y90.9 Presence of alcohol in blood, level not specified
CPT/HCPCS: 36415; 80053; 81003; 83690; 85025; 99283

== ENCOUNTER 2020-07-16 20:53 | Inpatient (IN) | payer MEDICAID ==
[~2020-07-16] VITALS: Ht 365.8 cm; Wt 72.2 kg
[~2020-07-16 20:53] MED LIST changes: +BISA-155 PO; +MAGN296S70 PO
--- NOTE | 2020-07-16 21:57 | NUR ---
pt stating the need to void - he is too intoxicated to safely ambulate to the rest room. pt given a urinal and was able to void about 700ml into the urinal but also voided a significant amount onto the floor. pt is appologetic and offers to clean the floor. pt advised that is not necessary and is offered new pants but refuses at this time.
[2020-07-16] MEDS ORDERED: magnesium oxide 400mg tablet PO ONE (22:00)
[2020-07-16] MEDS ORDERED: normal saline 1000ML IV soln IVB ONE (22:00)
[2020-07-16] MEDS ORDERED: thiamine 100mg tablet PO ONE (22:00)
[2020-07-16] MEDS ORDERED: phenobarbital inj 260 MG in normal saline 100ml IV soln 100 ML IV ONE (22:00)
--- NOTE | 2020-07-16 22:13 | NUR ---
Patient reports he wants to shoot himself in the head, hears voices and sees things, trying to go to detox, wants to see his kids, states he is HTN and c/o throwing up blood
--- NOTE | 2020-07-16 22:14 | NUR ---
Directions need repeating for patietn to follow
[2020-07-16 22:37] LABS: BASOPHILS # (AUTO) 0.1 X10'3 (0-0.2); BASOPHILS % (AUTO) 0.7 % (0-1); EOSINOPHILS # (AUTO) 0.1 X10'3 (0-0.9); EOSINOPHILS % (AUTO) 1.3 % (0-6); HEMATOCRIT 46.1 % (42.0-52.0); HEMOGLOBIN 15.8 g/dl (14.0-17.9); LYMPHOCYTES # (AUTO) 3.9 X10'3 (1.1-4.8); LYMPHOCYTES % (AUTO) 40.3 % (21-51); MEAN CORPUSCULAR HEMOGLOBIN 31.6 PG (27.0-31.0); MEAN CORPUSCULAR HGB CONC 34.2 g/dL (33.0-36.5); MEAN CORPUSCULAR VOLUME 92.4 FL (78-98); MEAN PLATELET VOLUME 7.8 FL (7.4-10.4); MONOCYTES # (AUTO) 0.6 X10'3 (0-0.9); MONOCYTES % (AUTO) 6.5 % (2-12); NEUTROPHILS % (AUTO) 51.2 % (42-75); PLATELET COUNT 283 X10'3 (140-440); RED BLOOD COUNT 4.99 X10'6 (4.70-6.10); RED CELL DISTRIBUTION WIDTH 14.2 % (11.5-14.5); WHITE BLOOD COUNT 9.8 X10'3 (4.5-11.0)
[2020-07-16 22:55] LABS: URINE AMPHETAMINE SCREEN NEGATIVE (Neg); URINE BARBITUATE SCREEN NEGATIVE (Neg); URINE BENZODIAZEPINES SCREEN NEGATIVE (Neg); URINE CANNABINOID SCREEN NEGATIVE (Neg); URINE COCAINE SCREEN NEGATIVE (Neg); URINE METHADONE SCREEN NEGATIVE (Neg); URINE OPIATE SCREEN NEGATIVE (Neg); URINE PHENCYCLIDINE SCREEN NEGATIVE (Neg)
[2020-07-16] MEDS ORDERED: ondansetron/PF 4mg/2ml inj IV ONE (22:55)
[2020-07-16 23:00] LABS: ALANINE AMINOTRANSFERASE 24 U/L (12-78); ALBUMIN 3.7 G/DL (3.4-5.0); ALKALINE PHOSPHATASE 75 IU/L (46-116); ANION GAP 8 (8-16); ASPARTATE AMINO TRANSFERASE 18 U/L (10-37); BILIRUBIN,TOTAL 0.6 MG/DL (0.1-1.0); BLOOD UREA NITROGEN 15 MG/DL (7-18); CALCIUM 8.6 MG/DL (8.5-10.1); CHLORIDE 107 MMOL/L (99-107); CREATININE 0.75 MG/DL (0.60-1.10); GLUCOSE 112 MG/DL (70-104); POTASSIUM 3.5 MMOL/L (3.5-5.1); SODIUM 140 MMOL/L (135-145); TOTAL CARBON DIOXIDE 24.6 MMOL/L (24-32); TOTAL PROTEIN 7.3 G/DL (6.4-8.2); eGFR > 90 ML/MIN
[2020-07-16 23:02] LABS: MAGNESIUM 2.1 MG/DL (1.5-2.4)
[2020-07-16 23:15] LABS: ETHANOL 0.414 GM/DL (0.0-0.010)
--- NOTE | 2020-07-17 00:10 | NUR ---
WALKING TOWARD ROOM AND PATIENT LOOKED UP AND THEN ROLLED ONTO FLOOR OF ROOM FROM [facility]. ANSWERS QUESTION APPROPRIETLY, PATIENT REPORTS HE THOUGHT HE WAS LYING ON HIS COUCH AT HOME. DENIES ANY PAIN TO RIGHT SIDE OF BODY. SKIN INTACT NO ERYTHEMA NOTED AFTER INSPECTION TO DEPENDANT SIDE HE ROLLED ONTO. PATIENT FURTHER DENIES PAIN OR INJURY. DR FERNÁNDEZ NOTIFIED OF SCENARIO. PATIENT CLEARED TO MOVE OVER TO OVERFLOW FOR CONTINUED CARE WITH PIVL. PIVL SECURED WITH COBAN PATIENT THREATENS TO PUL IV OUT.
--- NOTE | 2020-07-17 01:05 | NUR ---
received patient report. patient in bed. Needs frequent reminders to keep him from pulling out PIV. patient cooperative. Coban to keep PIV stabilized. patient got up to use bathroom. states that when he sleeps, he dreams about his kids.
--- NOTE | 2020-07-17 02:37 | NUR ---
patient sleeping soundly on R side. no longer trying to pull out PIV. He took sz pad off side railing, but it was placed back on bed when he fell asleep
--- NOTE | 2020-07-17 04:04 | NUR ---
patient resting quietly with eyes closed. no needs at this time.
--- NOTE | 2020-07-17 05:45 | NUR ---
VS taken, patient cooperative. went right back to sleep
--- NOTE | 2020-07-17 06:37 | NUR ---
ELE QURESHI AT THIS TIME
--- NOTE | 2020-07-17 08:15 | NUR ---
MOVED TO BED 26, PT IN BED 24 TO LOUD
--- NOTE | 2020-07-17 12:46 | NUR ---
Breaking primary RN. Pt resting in bed quietly. Respirations unlabored. NAD
--- NOTE | 2020-07-17 17:05 | NUR ---
Pt moved from ED overflow to ED room 12 due to staffing in the dept. Pt is calm and cooperative at this time. Pt is awaiting evaluation from .
--- NOTE | 2020-07-17 18:10 | NUR ---
Pt has no change in condition. Pt is eating dinner. Pt is calm and cooperative.
--- NOTE | 2020-07-17 19:11 | NUR ---
No change in condition. Continuing to monitor the patient.
--- NOTE | 2020-07-17 21:10 | NUR ---
[facility] IS PLACING PT ON [id number]
--- NOTE | 2020-07-18 06:29 | NUR ---
Assumed care of pt., pt. able to ambulate over from main ER. In bed at this time, RR even and unlabored, will monitor.
--- NOTE | 2020-07-18 08:30 | NUR ---
Pt. awake and eating breakfast at this time, he continues to appear calm and cooperative.
--- NOTE | 2020-07-18 09:17 | NUR ---
1:1 completed at bedside, pt. continues to report S/I with a plan to obtain a gun and shoot himself or lay on the train tracks. He denies A/ROBERTSON, however reports V/ROBERTSON of seeing spots and shadows sometimes. Pt. denies any s/s of alcohol withdrawl and none are exhibited at this time, he is able to eat 100% of breakfast and is consuming adequate fluids, will continue to monitor.
--- NOTE | 2020-07-18 10:30 | NUR ---
PT. sleeping at this time, laying on back, rr even and unlabored.
[2020-07-18] MEDS ORDERED: NALT50TA PO (11:41)
[2020-07-18] MEDS ORDERED: VENL225T3 PO (11:41)
[2020-07-18] MEDS ORDERED: BUS15T PO (11:41)
[2020-07-18] MEDS ORDERED: HYDR-3686 PO (11:41)
[2020-07-18] MEDS ORDERED: LISI-643 PO (11:41)
--- NOTE | 2020-07-18 12:30 | NUR ---
Pt. asleep at this time, laying on rt. side, appears to be resting comfortably.
--- NOTE | 2020-07-18 13:04 | NUR ---
Pt. reports feeling, "Shaky" and BP is elevated. Endorsed to Dr. Dwyer who believes pt. to be in alcohol withdrawl. New orders obtained and will monitor.
[2020-07-18] MEDS ORDERED: dextrose 50%-water 50ml dispensing syringe IV PRN (13:05)
[2020-07-18] MEDS: LORazepam 1 MG tablet PO PRN ×4 (13:15→20:16)
--- NOTE | 2020-07-18 14:31 | NUR ---
Pt. laying in bed at this time with HOB elevated, he appears calm, no tremors observed and RR even and unlabored.
--- NOTE | 2020-07-18 16:43 | NUR ---
Pt. sleeping at this time, laying on back, rr even and unlabored.
--- NOTE | 2020-07-18 17:53 | NUR ---
Pt's BP remains slightly elevated and he reports slight shakiness and sweating, however has improved from earlier. He requests PRN ativan for anxiety, will administer and continue to monitor.
--- NOTE | 2020-07-18 19:00 | NUR ---
Patient resting quietly, eyes closed, low fowlers position in bed. In direct view from nurses station.
[2020-07-18] MEDS ORDERED: traZODone 50mg tablet PO SCH (20:10)
--- NOTE | 2020-07-18 20:19 | NUR ---
Patient given prn ativan along with trazadone. He is well oriented and cooperative, he complanes of aniety, racing thoughts, and problems sleeping.
--- NOTE | 2020-07-19 00:13 | NUR ---
Patient is awake, pacing the floor. He exhibits restlessness. Patient is cooperative, he does complain of anxiety.
[2020-07-19] MEDS: LORazepam 1 MG tablet PO PRN ×6 (00:19→21:44)
--- NOTE | 2020-07-19 00:21 | NUR ---
Ativan given po for patients anxiety. (prn)
--- NOTE | 2020-07-19 02:16 | NUR ---
Patient is restless in bed, he sleeps for short periods of time.
--- NOTE | 2020-07-19 02:22 | NUR ---
He got up and went to the sink and filled his pitcher with water.
--- NOTE | 2020-07-19 02:28 | NUR ---
Dr Bales made aware that the ativan 2 mg po is having little effect. Pt awake and feels anxious. She stated to let her know if he excalates but is not comfortable with adding meds on top of the ativan that was just administered.
[2020-07-19] MEDS ORDERED: hydrOXYzine 25 MG tablet PO ONE (03:10)
--- NOTE | 2020-07-19 03:19 | NUR ---
Patient is still not sleeping. He describes racing thoughts. Patient given Atarax 25 mg PO after consulting with Dr. Nakita Bales. Patient is cooperative. VS updated in a sitting position, 140/91, Pulse of 70, Resp 18. Patient tells he drinks vodka between a fifth and a half gallon a day. Patient states he has been a binge drinker since age 15.
--- NOTE | 2020-07-19 03:51 | NUR ---
Patient remains awake, he is resting quietly.
[2020-07-19] MEDS: LORazepam 2 mg/ml vial IV PRN ×3 (04:37→09:12)
--- NOTE | 2020-07-19 04:44 | NUR ---
Patient given ativan 2 mg IV in saline lock. SL was then flushed with NaCl. Patient tells this filing writer he is feeling relaxed now. Patient is encouraged to try and sleep.
--- NOTE | 2020-07-19 06:33 | NUR ---
Patient remains delusional and not sleeping at all. Pulse rate remains regular and within normal limits. Patient is consistantly being redirected back to bed. Dr. Bales and Dr. Dwyer are both advised of patients lack of improvement and inability to gain any sleep. VERENICE Dietrich is given hand off RN to RN report. She will observe patient closely.
--- NOTE | 2020-07-19 06:45 | NUR ---
Patient awake and laying in bed. No distress observed. Continue to monitor.
[2020-07-19] MEDS: thiamine 100mg tablet PO SCH (08:07)
--- NOTE | 2020-07-19 08:10 | NUR ---
Patient eating breakfast. No distress observed. Continue to monitor.
--- NOTE | 2020-07-19 09:10 | NUR ---
Patient requesting is IV med Ativan. Patient has not slept since he arrived. Continue to monitor.
--- NOTE | 2020-07-19 10:16 | NUR ---
RN removed patient's IV. appeared to be pulled. RN gave oral meds and will continue with orals. Patient wants oral medication and wanted the I.V. out. Continue to monitor.
--- NOTE | 2020-07-19 10:40 | NUR ---
Patient talking to himself. RN looked to see if patient was on the phone but the phone is at the nurses station. Patient calm. Continue to monitor.
--- NOTE | 2020-07-19 12:45 | NUR ---
Patient eating lunch. No distress observed. Continue to monitor.
--- NOTE | 2020-07-19 13:37 | NUR ---
Monitoring pt while primary nurse on lunch break. Amb around bed, will continue to monitor.
--- NOTE | 2020-07-19 14:55 | NUR ---
Patient started asking about the car accident we (the staff) were talking about. RN advised patient that nobody was talking about a car accident. Patient appears a little psychotic. Continue to monitor.
--- NOTE | 2020-07-19 15:40 | NUR ---
Patient walks up to lockwood and states "I can do it. I'll pull it out of the wall." RN asked "what are you going to pull out of the wall?" Patient states, "the clock." RN advised patient that we don't need that and patient went back to his room.
--- NOTE | 2020-07-19 16:20 | NUR ---
RN walks out of the area to get supplies. Patient starts to follow RN. RN stops patient and patient said "aren't we all leaving?" RN adivsed that nobody is leaving. Patient went back to bed. Continue to monitor.
[2020-07-19] MEDS ORDERED: OLANZapine 5mg rapidly disint. tablet PO ONE (17:00)
--- NOTE | 2020-07-19 18:45 | NUR ---
The patient is resting in bed. He gets up occasionally to wander, but ends up back in bed.
[2020-07-19] MEDS ORDERED: traZODone 50mg tablet PO ONE (20:10)
--- NOTE | 2020-07-19 21:44 | NUR ---
Patient medicated with 2mg PO Ativan with good effect. Patient states declining feelings of withdrawal.
--- NOTE | 2020-07-19 22:36 | NUR ---
Pt. lying in bed on his right side. Eyes closed, but doesn't appear to be sleeping.
[2020-07-20] MEDS ORDERED: diphenhydrAMINE 25mg capsule PO ONE (00:45)
[2020-07-20] MEDS ORDERED: chlordiazePOXIDE 25mg capsule PO ONE (00:45)
[2020-07-20] MEDS ORDERED: OLANZapine 5mg rapidly disint. tablet PO ONE (00:45)
--- NOTE | 2020-07-20 01:24 | NUR ---
Patient up to the BR, then back to bed
--- NOTE | 2020-07-20 02:37 | NUR ---
Patient has been visualized drinking 8-9 cristina liter cups. At this point the cup has been removed for the short term, to prevent any electrolyte imbalances
[2020-07-20] MEDS ORDERED: haloperidol lactate 5mg/ml inj IM PRN (03:20)
[2020-07-20] MEDS ORDERED: LORazepam 1 MG tablet PO PRN (03:20)
[2020-07-20] MEDS: LORazepam 1 MG tablet PO PRN ×4 (03:35→22:31)
--- NOTE | 2020-07-20 04:15 | NUR ---
Patient continued ramble about auditory and visual hallucinations. A verbal order for ativan and halidol was recieved from Dr. Ledezma. Patient now appears to be resting with less difficulty.
--- NOTE | 2020-07-20 06:14 | NUR ---
Patient up and appears psychotic. Patient having difficulty obeying commands but eventually goes back to his bed. Patient not making sense. Patient placed on ETOH protocol. Continue to monitor.
--- NOTE | 2020-07-20 06:45 | NUR ---
RN gave patient 2mg Ativan, PO. Patient states "I'm going to get angry. You guys are lying to me." Patient took the pills. Continue to monitor.
[2020-07-20] MEDS ORDERED: OLANZapine **IM** 10 mg inj. IM ONE (07:15)
[2020-07-20] MEDS: thiamine 100mg tablet PO SCH (07:35)
--- NOTE | 2020-07-20 08:10 | NUR ---
Patient given IM Zyprexa. Patient is still psychotic and not making sense. Patient eating at this time. Continue to monitor.
--- NOTE | 2020-07-20 08:28 | NUR ---
Patient yelling out. "I'll get it in a minute! Just leave it on the table." Then mumbling to himself. Continue to monitor.
--- NOTE | 2020-07-20 09:35 | NUR ---
Patient keeps getting up and attempting to wander. Patient has to be told multiple times to go back to his area. Patient going into rooms and attempting to get into the Respiratory room. Continue to monitor.
[2020-07-20] MEDS ORDERED: normal saline 1000ML IV soln IVB ONE (09:55)
[2020-07-20] MEDS ORDERED: LORazepam 2 mg/ml vial IV ONE (09:55)
--- NOTE | 2020-07-20 09:55 | NUR ---
RN spoke to Dr Dwyer who came over to re-evaluate patient. Patient did not sleep nor get any better with the I.M. Zyprexa. Dr Kidd advised RN he will call the hospitalist for admission for ETOH withdrawal/delirium. Continue to monitor.
--- NOTE | 2020-07-20 10:34 | NUR ---
RN placed IV, piper blood and gave patient 2 mg Ativan I.V. Patient has a bolus running. Patient is a 1 to 1. Continue to monitor.
[2020-07-20] MEDS ORDERED: NO HOME MEDS (10:40)
[2020-07-20 10:59] LABS: BASOPHILS % (AUTO) 0.6 % (0-1); EOSINOPHILS # (AUTO) 0.2 X10'3 (0-0.9); HEMATOCRIT 45.8 % (42.0-52.0); HEMOGLOBIN 15.9 g/dl (14.0-17.9); LYMPHOCYTES # (AUTO) 2.1 X10'3 (1.1-4.8); LYMPHOCYTES % (AUTO) 36.6 % (21-51); MEAN CORPUSCULAR HEMOGLOBIN 31.8 PG (27.0-31.0); MEAN CORPUSCULAR HGB CONC 34.8 g/dL (33.0-36.5); MEAN CORPUSCULAR VOLUME 91.4 FL (78-98); MEAN PLATELET VOLUME 8.5 FL (7.4-10.4); MONOCYTES # (AUTO) 0.6 X10'3 (0-0.9); MONOCYTES % (AUTO) 9.8 % (2-12); NEUTROPHILS # (AUTO) 2.9 X10'3 (1.8-7.7); PLATELET COUNT 186 X10'3 (140-440); RED BLOOD COUNT 5.01 X10'6 (4.70-6.10); RED CELL DISTRIBUTION WIDTH 13.7 % (11.5-14.5); WHITE BLOOD COUNT 5.7 X10'3 (4.5-11.0)
[2020-07-20 11:24] LABS: ALANINE AMINOTRANSFERASE 20 U/L (12-78); ALBUMIN 3.7 G/DL (3.4-5.0); ALBUMIN/GLOBULIN RATIO 1.1 (1.1-1.5); ALKALINE PHOSPHATASE 72 IU/L (46-116); ANION GAP 10 (8-16); ASPARTATE AMINO TRANSFERASE 15 U/L (10-37); BILIRUBIN,TOTAL 1.4 MG/DL (0.1-1.0); BLOOD UREA NITROGEN 16 MG/DL (7-18); BUN/CREATININE RATIO 18.8 (5.4-32.0); CALCIUM 8.6 MG/DL (8.5-10.1); CHLORIDE 102 MMOL/L (99-107); CREATININE 0.85 MG/DL (0.60-1.10); GLUCOSE 86 MG/DL (70-104); POTASSIUM 3.9 MMOL/L (3.5-5.1); SODIUM 135 MMOL/L (135-145); TOTAL CARBON DIOXIDE 23.1 MMOL/L (24-32); TOTAL PROTEIN 7.2 G/DL (6.4-8.2); eGFR > 90 ML/MIN
[2020-07-20] MEDS ORDERED: magnesium hydroxide 30ml (MOM) UD suspension PO PRN (11:35)
[2020-07-20] MEDS ORDERED: ondansetron/PF 4mg/2ml inj IV PRN (11:35)
[2020-07-20] MEDS: LORazepam 2 mg/ml vial IV PRN ×3 (11:35→23:01)
[2020-07-20] MEDS ORDERED: LORazepam 2 mg/ml vial IV PRN (11:35)
[2020-07-20] MEDS ORDERED: dextrose 50%-water 50ml dispensing syringe IV PRN (11:35)
[2020-07-20] MEDS ORDERED: acetaminophen 325mg tablet PO PRN (11:35)
[2020-07-20] MEDS ORDERED: mag hydrox/Alum hydrox/simeth 30ml oral suspension PO PRN (11:35)
--- NOTE | 2020-07-20 11:40 | NUR ---
relieving RN for break, sitter at bedside at pt is restless, GCS 14, hands are shaky, pt is waiting for bed assignment
--- NOTE | 2020-07-20 11:54 | NUR ---
pt trying to get up "I want to go up stairs...", constantly have to redirect pt back to bed, rambling speech about being [place], "did you hear that dog...the [employer] see the steering wheel..."
[2020-07-20] MEDS: multivitamins, therapeutics tablet PO SCH (12:27)
[2020-07-20] MEDS: folic acid 1mg tablet PO SCH (12:27)
[2020-07-20] MEDS ORDERED: pantoprazole 40 MG vial IV ONE (14:20)
[2020-07-20 15:15] VITALS: BP 136/81
[2020-07-20] MEDS: normal saline 1000ml 1,000 ML IV SCH ×2 (15:37→19:33)
[2020-07-20] MEDS: haloperidol lactate 5mg/ml inj IM PRN ×2 (17:19→23:43)
[2020-07-20 18:00] VITALS: BP 144/88
--- NOTE | 2020-07-20 18:30 | NUR ---
Patient in room PCU 3018. I have received report from April CALDERA and had the opportunity to ask questions and assume patient care.
[2020-07-20] MEDS: heparin, porcine 5000 units/ml vial SQ SCH (19:35)
[2020-07-20 22:30] VITALS: BP 139/94
--- NOTE | 2020-07-21 00:29 | NUR ---
PAGER ID: [phone] MESSAGE: Pt. 3018 ETOH w/d has had Ativan po,iv, and most recent Haldol at 2343. Can we get an order for the Ativan/Benadryl/Haldol combo please. Eva [phone] if not, just PIV [email or web address]
[2020-07-21] MEDS ORDERED: diphenhydrAMINE 50 mg/ml inj IV PRN (00:30)
[2020-07-21] MEDS: LORazepam 2 mg/ml vial IV PRN ×6 (01:06→08:36)
[2020-07-21] MEDS: haloperidol lactate 5mg/ml inj IM PRN ×2 (01:44→03:54)
--- NOTE | 2020-07-21 02:20 | NUR ---
PAGER ID: [phone] MESSAGE: Jared Ray. Medications not helping, bit thru IV. Need order for restraints please. Eva [phone]
--- NOTE | 2020-07-21 03:32 | NUR ---
Patient is fighting the restraints despite more ativan being given.
--- NOTE | 2020-07-21 04:07 | NUR ---
called back with orders to give another benadryl dose at the same time as the Ativan and haldol. MD okayed for this one time dose when new piv is back in place.
[2020-07-21] MEDS ORDERED: haloperidol lactate 5mg/ml inj IM ONE (04:15)
[2020-07-21] MEDS ORDERED: diphenhydrAMINE 50 mg/ml inj IV ONE (04:15)
[2020-07-21] MEDS ORDERED: diphenhydrAMINE 50 mg/ml inj IM ONE (04:15)
--- NOTE | 2020-07-21 04:56 | NUR ---
Accidently put in the one time dose of benadryl IM NOT IV. Gave it PIV, just need to sort it on the e-mar.
[2020-07-21] MEDS ORDERED: OLANZapine **IM** 10 mg inj. IM ONE (05:00)
[2020-07-21] MEDS ORDERED: ziprasidone IM 20mg inj **IM only IM ONE ×2 (05:00→05:20)
--- NOTE | 2020-07-21 05:30 | NUR ---
Dr Crespo gave the ok for 3 point restraint as patient is actively trying to kick out.
[2020-07-21 05:57] LABS: BASOPHILS % (AUTO) 0.4 % (0-1); EOSINOPHILS # (AUTO) 0.1 X10'3 (0-0.9); EOSINOPHILS % (AUTO) 1.5 % (0-6); LYMPHOCYTES % (AUTO) 29.5 % (21-51); MEAN CORPUSCULAR HGB CONC 34.9 g/dL (33.0-36.5); MEAN CORPUSCULAR VOLUME 91.6 FL (78-98); MEAN PLATELET VOLUME 8.6 FL (7.4-10.4); MONOCYTES # (AUTO) 0.6 X10'3 (0-0.9); NEUTROPHILS # (AUTO) 4.2 X10'3 (1.8-7.7); NEUTROPHILS % (AUTO) 60.6 % (42-75); PLATELET COUNT 168 X10'3 (140-440); WHITE BLOOD COUNT 6.9 X10'3 (4.5-11.0)
[2020-07-21 06:00] VITALS: BP 181/108
--- NOTE | 2020-07-21 06:00 | NUR ---
GIFT CONSULTANT just informed nursing that patient managed to roll to one side and voided all over the floor. EVS has been requested. Patient is still very agitated and has been restless/agressive thru out the shift.
--- NOTE | 2020-07-21 06:00 | NUR ---
Patient in room PCU 3018. I have received report from VERENICE Velasquez and had the opportunity to ask questions and assume patient care.
[2020-07-21 06:08] LABS: ALANINE AMINOTRANSFERASE 21 U/L (12-78); ALBUMIN 3.7 G/DL (3.4-5.0); ALBUMIN/GLOBULIN RATIO 1.1 (1.1-1.5); ALKALINE PHOSPHATASE 69 IU/L (46-116); AMYLASE 53 U/L (25-115); ANION GAP 12 (8-16); ASPARTATE AMINO TRANSFERASE 31 U/L (10-37); BILIRUBIN,TOTAL 1.2 MG/DL (0.1-1.0); BLOOD UREA NITROGEN 14 MG/DL (7-18); BUN/CREATININE RATIO 18.9 (5.4-32.0); CALCIUM 8.9 MG/DL (8.5-10.1); CHLORIDE 105 MMOL/L (99-107); CREATININE 0.74 MG/DL (0.60-1.10); GLUCOSE 83 MG/DL (70-104); LIPASE 154 U/L (73-393); MAGNESIUM 1.9 MG/DL (1.5-2.4); PHOSPHORUS 3.8 MG/DL (2.3-4.5); POTASSIUM 3.7 MMOL/L (3.5-5.1); SODIUM 137 MMOL/L (135-145); TOTAL CARBON DIOXIDE 20.5 MMOL/L (24-32); eGFR > 90 ML/MIN
--- NOTE | 2020-07-21 06:15 | NUR ---
Problems reprioritized. Patient report given, questions answered & plan of care reviewed with Nick CALDERA.
--- NOTE | 2020-07-21 06:20 | NUR ---
Zita Calvo with elevated BP's of 180/108,80, other arm was 190/120, 88. MD advised to retake VS in 1hr. Addendum: 07/21/20 at 0645 by Eva Pelayo RN Retake BP after 1 hr after giving hydralazine IV push.
[2020-07-21] MEDS ORDERED: hydrALAZINE 20mg/ml inj. IV PRN (06:25)
[2020-07-21] MEDS: normal saline 1000ml 1,000 ML IV SCH ×2 (07:33→17:37)
[2020-07-21] MEDS ORDERED: folic acid inj. 2 MG, thiamine inj. 100 MG, MVI, adult No.4 with vit. K 10 ML in dextro... IV SCH ×4 (08:00)
[2020-07-21] MEDS: pantoprazole 40 MG vial IV SCH (08:36)
[2020-07-21] MEDS: multivitamins, therapeutics tablet PO SCH (08:37)
[2020-07-21] MEDS: folic acid 1mg tablet PO SCH (08:37)
[2020-07-21] MEDS: heparin, porcine 5000 units/ml vial SQ SCH ×2 (08:37→19:53)
[2020-07-21] MEDS: thiamine 100mg tablet PO SCH (08:37)
[2020-07-21 11:17] VITALS: BP 181/108
[2020-07-21] MEDS: propranolol 10mg tablet PO SCH ×2 (14:06→20:01)
[2020-07-21 15:43] VITALS: BP 129/66
[2020-07-21 18:00] VITALS: BP 130/73
--- NOTE | 2020-07-21 18:15 | NUR ---
Problems reprioritized. Patient report given, questions answered & plan of care reviewed with VERENICE Salgado.
[2020-07-21 20:02] VITALS: BP 143/68
[2020-07-21 22:00] VITALS: BP 130/86
[2020-07-22 02:00] VITALS: BP 131/80
[2020-07-22] MEDS: normal saline 1000ml 1,000 ML IV SCH ×3 (03:59→22:55)
[2020-07-22 05:55] LABS: BASOPHILS % (AUTO) 0.7 % (0-1); EOSINOPHILS # (AUTO) 0.3 X10'3 (0-0.9); EOSINOPHILS % (AUTO) 4.3 % (0-6); HEMATOCRIT 41.1 % (42.0-52.0); LYMPHOCYTES # (AUTO) 2.5 X10'3 (1.1-4.8); LYMPHOCYTES % (AUTO) 40.2 % (21-51); MEAN CORPUSCULAR HEMOGLOBIN 31.7 PG (27.0-31.0); MEAN CORPUSCULAR HGB CONC 34.1 g/dL (33.0-36.5); MEAN PLATELET VOLUME 8.2 FL (7.4-10.4); MONOCYTES # (AUTO) 0.6 X10'3 (0-0.9); MONOCYTES % (AUTO) 9.5 % (2-12); NEUTROPHILS # (AUTO) 2.8 X10'3 (1.8-7.7); NEUTROPHILS % (AUTO) 45.3 % (42-75); PLATELET COUNT 182 X10'3 (140-440); RED BLOOD COUNT 4.42 X10'6 (4.70-6.10); WHITE BLOOD COUNT 6.1 X10'3 (4.5-11.0)
[2020-07-22 06:00] VITALS: BP 111/60
[2020-07-22 06:12] LABS: ALANINE AMINOTRANSFERASE 16 U/L (12-78); ALBUMIN 3.1 G/DL (3.4-5.0); ALKALINE PHOSPHATASE 64 IU/L (46-116); AMYLASE 48 U/L (25-115); ANION GAP 8 (8-16); ASPARTATE AMINO TRANSFERASE 20 U/L (10-37); BILIRUBIN,TOTAL 0.9 MG/DL (0.1-1.0); BLOOD UREA NITROGEN 14 MG/DL (7-18); BUN/CREATININE RATIO 16.7 (5.4-32.0); CALCIUM 8.5 MG/DL (8.5-10.1); CHLORIDE 107 MMOL/L (99-107); CREATININE 0.84 MG/DL (0.60-1.10); GLUCOSE 90 MG/DL (70-104); LIPASE 191 U/L (73-393); MAGNESIUM 2.1 MG/DL (1.5-2.4); PHOSPHORUS 4.3 MG/DL (2.3-4.5); SODIUM 140 MMOL/L (135-145); TOTAL CARBON DIOXIDE 24.9 MMOL/L (24-32); TOTAL PROTEIN 6.1 G/DL (6.4-8.2); eGFR > 90 ML/MIN
--- NOTE | 2020-07-22 06:25 | NUR ---
Problems reprioritized. Patient report given, questions answered & plan of care reviewed with VERENICE Barraza.
--- NOTE | 2020-07-22 06:52 | NUR ---
Patient in room PCU 3018. I have received report from FLORIAN CALDERA, and had the opportunity to ask questions and assume patient care.
[2020-07-22] MEDS: propranolol 10mg tablet PO SCH ×3 (08:25→20:07)
[2020-07-22] MEDS: multivitamins, therapeutics tablet PO SCH (08:25)
[2020-07-22] MEDS: folic acid 1mg tablet PO SCH (08:25)
[2020-07-22] MEDS: thiamine 100mg tablet PO SCH (08:25)
[2020-07-22] MEDS: pantoprazole 40 MG vial IV SCH (08:26)
[2020-07-22] MEDS: heparin, porcine 5000 units/ml vial SQ SCH ×2 (08:26→19:06)
--- NOTE | 2020-07-22 08:57 | NUR ---
PATIENT IS COMPLIANT, RESPONDING APPROPRIATELY, AND HAS A CALM MANNER. RESTRAINTS ARE NOT NEEDED AT THIS TIME Addendum: 07/22/20 at 0858 by Tomasa Hopkins RN Amended: Links added.
[2020-07-22 11:00] VITALS: BP 108/65
--- NOTE | 2020-07-22 11:17 | NUR ---
PATIENT IS CALM, AND COMPLIANT, RESTRAINTS ARE NOT NEEDED AT THIS TIME Addendum: 07/22/20 at 1118 by Tomasa Hopkins RN Amended: Links added.
[2020-07-22] MEDS: venlafaxine XR 75mg capsule (Q24H) PO SCH (11:29)
[2020-07-22] MEDS: busPIRone 15mg tablet PO SCH ×2 (11:29→19:05)
--- NOTE | 2020-07-22 11:53 | NUR ---
PATIENT IS CALM AND COMPLIANT, FOLLOWS INSTRUCTIONS. RESTRAINTS ARE NOT APPLIED AT THIS TIME. Addendum: 07/22/20 at 1155 by Tomasa Hopkins RN Amended: Links added.
--- NOTE | 2020-07-22 11:57 | NUR ---
PAGER ID: [phone] MESSAGE: Re: [facility]. [facility]99 [facility] and medical clearance progress note in order for county to come and evaluate Pt. -[facility] #[id number] -Dr. Giles paged concerning Pt's medical clearance and 1799 order.
--- NOTE | 2020-07-22 14:01 | NUR ---
PATIENT IS CALM, FOLLOWING INSTRUCTIONS AND COMPLACENT. RESTRAINTS ARE NOT NEEDED AT THIS TIME. Addendum: 07/22/20 at 1402 by Tomasa Hopkins RN Amended: Links added.
[2020-07-22 15:00] VITALS: BP 141/73
--- NOTE | 2020-07-22 15:29 | NUR ---
PAGER ID: [phone] MESSAGE: Re: Darryl Ray. Room: 3018B. [facility] came to evaluate Pt and they are not placing a 5150 hold on Pt. Do you want to DC Pt today or transfer to surgical unit and DC later? -[facility] #[id number] -Dr. Giles paged concerning pt's plan of care.
[2020-07-22 18:00] VITALS: BP 146/88
--- NOTE | 2020-07-22 18:00 | NUR ---
Orientee documentation: I have reviewed and agree with all interventions, assessments performed and documented by Tomasa CALDERA.
--- NOTE | 2020-07-22 18:15 | NUR ---
Problems reprioritized. Patient report given, questions answered & plan of care reviewed with Kianna CALDERA.
--- NOTE | 2020-07-22 18:16 | NUR ---
Problems reprioritized. Patient report given, questions answered & plan of care reviewed with FLORIAN CALDERA.
[2020-07-22 22:00] VITALS: BP 138/78
[2020-07-23 02:00] VITALS: BP 137/85
[2020-07-23 05:25] LABS: BASOPHILS % (AUTO) 0.8 % (0-1); EOSINOPHILS # (AUTO) 0.2 X10'3 (0-0.9); HEMATOCRIT 39.1 % (42.0-52.0); HEMOGLOBIN 13.5 g/dl (14.0-17.9); LYMPHOCYTES # (AUTO) 2.5 X10'3 (1.1-4.8); LYMPHOCYTES % (AUTO) 39.5 % (21-51); MEAN CORPUSCULAR HEMOGLOBIN 31.9 PG (27.0-31.0); MEAN CORPUSCULAR HGB CONC 34.5 g/dL (33.0-36.5); MEAN CORPUSCULAR VOLUME 92.4 FL (78-98); MEAN PLATELET VOLUME 8.1 FL (7.4-10.4); MONOCYTES # (AUTO) 0.6 X10'3 (0-0.9); MONOCYTES % (AUTO) 9.5 % (2-12); NEUTROPHILS % (AUTO) 47.2 % (42-75); PLATELET COUNT 173 X10'3 (140-440); RED BLOOD COUNT 4.23 X10'6 (4.70-6.10); RED CELL DISTRIBUTION WIDTH 13.6 % (11.5-14.5); WHITE BLOOD COUNT 6.3 X10'3 (4.5-11.0)
[2020-07-23 05:52] LABS: ALANINE AMINOTRANSFERASE 18 U/L (12-78); ALKALINE PHOSPHATASE 59 IU/L (46-116); AMYLASE 55 U/L (25-115); ANION GAP 7 (8-16); ASPARTATE AMINO TRANSFERASE 17 U/L (10-37); BILIRUBIN,TOTAL 0.7 MG/DL (0.1-1.0); BLOOD UREA NITROGEN 12 MG/DL (7-18); BUN/CREATININE RATIO 14.6 (5.4-32.0); CALCIUM 8.3 MG/DL (8.5-10.1); CHLORIDE 105 MMOL/L (99-107); CREATININE 0.82 MG/DL (0.60-1.10); GLUCOSE 98 MG/DL (70-104); LIPASE 227 U/L (73-393); MAGNESIUM 1.8 MG/DL (1.5-2.4); PHOSPHORUS 3.3 MG/DL (2.3-4.5); POTASSIUM 3.8 MMOL/L (3.5-5.1); SODIUM 138 MMOL/L (135-145); TOTAL CARBON DIOXIDE 26.1 MMOL/L (24-32); TOTAL PROTEIN 6.1 G/DL (6.4-8.2); eGFR > 90 ML/MIN
[2020-07-23 06:00] VITALS: BP 122/73
--- NOTE | 2020-07-23 06:00 | NUR ---
Patient in room PCU 3018. I have received report from MICHAEL CALDERA and had the opportunity to ask questions and assume patient care.
--- NOTE | 2020-07-23 06:05 | NUR ---
Patient in room PCU 3018. I have received report from Kianna CALDERA and had the opportunity to ask questions and assume patient care.
--- NOTE | 2020-07-23 06:14 | NUR ---
Problems reprioritized. Patient report given, questions answered & plan of care reviewed with VERENICE Barraza.
[2020-07-23] MEDS ORDERED: pantoprazole 40mg Tablet.DR PO SCH (07:30)
[2020-07-23] MEDS: propranolol 10mg tablet PO SCH ×2 (07:31→12:03)
[2020-07-23] MEDS: folic acid 1mg tablet PO SCH (07:31)
[2020-07-23] MEDS: busPIRone 15mg tablet PO SCH (07:31)
[2020-07-23] MEDS: heparin, porcine 5000 units/ml vial SQ SCH (07:31)
[2020-07-23] MEDS: multivitamins, therapeutics tablet PO SCH (07:32)
[2020-07-23] MEDS: venlafaxine XR 75mg capsule (Q24H) PO SCH (07:32)
[2020-07-23] MEDS: thiamine 100mg tablet PO SCH (07:32)
[2020-07-23] MEDS: normal saline 1000ml 1,000 ML IV SCH (09:35)
[2020-07-23] MEDS ORDERED: BUS15T PO (09:37)
[2020-07-23] MEDS ORDERED: VENL75CA61 PO (09:37)
--- NOTE | 2020-07-23 12:40 | NUR ---
PATIENT LEFT HOSPITAL ON FOOT IN STABLE CONDITION WITH VS ALL IN NORMAL RANGE, ALL BELONGINGS WITH HIM, IV TAKEN OUT, AND TELE MONITOR RETURNED. ALL DISCHARGE INSTRUCTIONS WERE GONE OVER AND PATIENT WAS ABLE TO ASK QUESTIONS, ANSWERS WHERE PROVIDED. HOME MEDICATIONS WHERE CALLED IN TO PHARMACY OF CHOICE ([facility] [address]).
--- NOTE | 2020-07-23 12:40 | NUR ---
Orientee documentation: I have reviewed and agree with all interventions, assessments performed and documented by Tomasa CALDERA.
== END 2020-07-23 12:35 | disposition home or self-care (01) | DRG 756 ==
LOC: ER 20:54 → ED HOLD 07-20 11:34 → PCU 3S 07-20 12:49
PROVIDERS: ADMIT Family Medicine; ATTEND Family Medicine
DX: R45.851 Suicidal ideations (principal); F32.9 Major depressive disorder, single episode, unspecified; I10 Essential (primary) hypertension; F12.90 Cannabis use, unspecified, uncomplicated; F10.220 Alcohol dependence with intoxication, uncomplicated; F15.90 Other stimulant use, unspecified, uncomplicated; F17.210 Nicotine dependence, cigarettes, uncomplicated; G40.909 Epilepsy, unspecified, not intractable, without status epilepticus; R00.0 Tachycardia, unspecified; Z86.69 Personal history of other diseases of the nervous system and sense organs; Z72.89 Other problems related to lifestyle; Z88.0 Allergy status to penicillin; Z79.899 Other long term (current) drug therapy
CPT/HCPCS: 36415; 80053; 80305; 80320; 82150; 82948; 83690; 83735; 84100; 84443; 85025; 85610; 87081; 93005; 96365; 96375; 96376; 99285; C9113; G0378; J0360; J1200; J1630; J1644; J2060; J2405; J2560; J3486; J3490; J7030; Q0163

== ENCOUNTER 2020-07-31 18:15 | Emergency (ER) | payer MEDICAID ==
[~2020-07-31] VITALS: Ht 188 cm; Wt 45.5 kg
[~2020-07-31 18:15] MED LIST changes: -BISA-155 PO; +BUS15T PO; -BUSP30TA2 PO; -CETI10TA14 PO; -HYDR50TA65 PO; -LISI10TA4 PO; -MAGN296S70 PO; -NALT50TA PO; -NICO-668 BC; -VENL225T3 PO; +VENL75CA61 PO
[2020-07-31] MEDS ORDERED: LORazepam 2 mg/ml vial IV ONE (19:10)
[2020-07-31 19:41] LABS: BASOPHILS # (AUTO) 0.1 X10'3 (0-0.2); BASOPHILS % (AUTO) 0.6 % (0-1); EOSINOPHILS # (AUTO) 0.1 X10'3 (0-0.9); EOSINOPHILS % (AUTO) 0.7 % (0-6); LYMPHOCYTES # (AUTO) 1.6 X10'3 (1.1-4.8); LYMPHOCYTES % (AUTO) 16.7 % (21-51); MEAN PLATELET VOLUME 8.1 FL (7.4-10.4); MONOCYTES # (AUTO) 0.6 X10'3 (0-0.9); MONOCYTES % (AUTO) 6.3 % (2-12); NEUTROPHILS # (AUTO) 7.3 X10'3 (1.8-7.7); NEUTROPHILS % (AUTO) 75.7 % (42-75); PLATELET COUNT 249 X10'3 (140-440); WHITE BLOOD COUNT 9.7 X10'3 (4.5-11.0)
[2020-07-31 19:51] LABS: ALBUMIN 3.7 G/DL (3.4-5.0); ALBUMIN/GLOBULIN RATIO 1.1 (1.1-1.5); ALKALINE PHOSPHATASE 85 IU/L (46-116); ANION GAP 10 (8-16); BILIRUBIN,TOTAL 1.3 MG/DL (0.1-1.0); BLOOD UREA NITROGEN 16 MG/DL (7-18); BUN/CREATININE RATIO 13.1 (5.4-32.0); CALCIUM 8.3 MG/DL (8.5-10.1); CHLORIDE 106 MMOL/L (99-107); CREATININE 1.22 MG/DL (0.60-1.10); LIPASE 265 U/L (73-393); MAGNESIUM 2.6 MG/DL (1.5-2.4); SODIUM 139 MMOL/L (135-145); TOTAL CARBON DIOXIDE 23.1 MMOL/L (24-32); TOTAL PROTEIN 7.1 G/DL (6.4-8.2); eGFR 71 ML/MIN
[2020-07-31 20:06] LABS: CLARITY,URINE SLIGHTLY CLOUDY (Clear); COLOR,URINE YELLOW (Yellow); GLUCOSE, URINE NEGATIVE (Neg); KETONES,URINE TRACE mg/dl (Neg); LEUKOCYTE ESTERASE ,URINE SMALL (Neg); NITRITES, URINE NEGATIVE (Neg); OCCULT BLOOD,URINE TRACE-INTACT (Neg); PH,URINE 5.5 (4.8-8.0); PROTEIN,URINE 30 mg/dl (Neg)
[2020-07-31 20:08] LABS: UA COLLECTION TYPE CLN CATCH MIDSTREAM
[2020-07-31 20:12] LABS: URINE AMPHETAMINE SCREEN NEGATIVE (Neg); URINE BARBITUATE SCREEN NEGATIVE (Neg); URINE BENZODIAZEPINES SCREEN NEGATIVE (Neg); URINE CANNABINOID SCREEN POSITIVE (Neg); URINE COCAINE SCREEN NEGATIVE (Neg); URINE METHADONE SCREEN NEGATIVE (Neg); URINE OPIATE SCREEN NEGATIVE (Neg); URINE PHENCYCLIDINE SCREEN NEGATIVE (Neg)
[2020-07-31 20:18] LABS: ALANINE AMINOTRANSFERASE 19 U/L (12-78); ASPARTATE AMINO TRANSFERASE 16 U/L (10-37); GLUCOSE 164 MG/DL (70-104); POTASSIUM 3.8 MMOL/L (3.5-5.1)
[2020-07-31 20:20] LABS: ETHANOL < 0.010 GM/DL (0.0-0.010)
[2020-07-31 20:29] LABS: BACTERIA,URINE NONE SEEN /HPF (Neg); MUCUS STRANDS MANY /LPF (Neg); RBC,URINE 0-2 /HPF (0-2); SQUAMOUS EPITHELIAL CELL,UR NONE SEEN /LPF (FEW); WBC,URINE 20-30 /HPF (0-4)
[2020-07-31 20:30] LABS: SPERM MANY /HPF (NEGATIVE)
[2020-07-31 20:31] LABS: WBC CLUMPS,URINE FEW /HPF (NEGATIVE)
[2020-07-31 20:43] LABS: HEMOGLOBIN 15.6 g/dl (14.0-17.9); RED BLOOD COUNT 4.82 X10'6 (4.70-6.10)
[2020-07-31 20:44] LABS: HEMATOCRIT 45.1 % (42.0-52.0); MEAN CORPUSCULAR HEMOGLOBIN 32.4 PG (27.0-31.0); MEAN CORPUSCULAR HGB CONC 34.6 g/dL (33.0-36.5); MEAN CORPUSCULAR VOLUME 93.6 FL (78-98); RED CELL DISTRIBUTION WIDTH 13.5 % (11.5-14.5)
[2020-07-31] MEDS ORDERED: normal saline 1000ML IV soln IVB ONE (20:45)
[2020-07-31] MEDS ORDERED: CHLO25CA10 PO (23:04)
[2020-07-31 23:30] VITALS: BP 138/76
== END 2020-07-31 23:33 | disposition home or self-care (01) ==
LOC: ER 18:16
DX: R56.9 Unspecified convulsions (principal); F10.230 Alcohol dependence with withdrawal, uncomplicated; Y90.9 Presence of alcohol in blood, level not specified; I10 Essential (primary) hypertension; F12.10 Cannabis abuse, uncomplicated; Z88.0 Allergy status to penicillin; Z88.8 Allergy status to other drugs, medicaments and biological substances
CPT/HCPCS: 36415; 70450; 80053; 80305; 80320; 81001; 83690; 83735; 85025; 87088; 93005; 96374; 99285; J2060; J7030

== ENCOUNTER 2020-09-16 18:17 | Emergency (ER) | payer MEDICAID ==
[~2020-09-16] VITALS: Ht 190.5 cm; Wt 104.5 kg
[~2020-09-16 18:17] MED LIST changes: +CHLO25CA10 PO
[2020-09-16] MEDS ORDERED: normal saline 1000ML IV soln IVB ONE (19:45)
[2020-09-16 20:15] LABS: BASOPHILS % (AUTO) 0.6 % (0-1); EOSINOPHILS # (AUTO) 0.1 X10'3 (0-0.9); EOSINOPHILS % (AUTO) 2.5 % (0-6); HEMATOCRIT 40.9 % (42.0-52.0); HEMOGLOBIN 13.6 g/dl (14.0-17.9); LYMPHOCYTES # (AUTO) 2.6 X10'3 (1.1-4.8); LYMPHOCYTES % (AUTO) 42.8 % (21-51); MEAN CORPUSCULAR HEMOGLOBIN 31.5 PG (27.0-31.0); MEAN CORPUSCULAR HGB CONC 33.3 g/dL (33.0-36.5); MEAN CORPUSCULAR VOLUME 94.7 FL (78-98); MONOCYTES # (AUTO) 0.6 X10'3 (0-0.9); MONOCYTES % (AUTO) 9.3 % (2-12); NEUTROPHILS # (AUTO) 2.7 X10'3 (1.8-7.7); NEUTROPHILS % (AUTO) 44.8 % (42-75); PLATELET COUNT 223 X10'3 (140-440); RED BLOOD COUNT 4.31 X10'6 (4.70-6.10); RED CELL DISTRIBUTION WIDTH 13.4 % (11.5-14.5)
[2020-09-16 20:27] LABS: ALANINE AMINOTRANSFERASE 16 U/L (12-78); ALKALINE PHOSPHATASE 73 IU/L (46-116); ANION GAP 13 (8-16); ASPARTATE AMINO TRANSFERASE 8 U/L (10-37); BILIRUBIN,TOTAL 0.2 MG/DL (0.1-1.0); BLOOD UREA NITROGEN 9 MG/DL (7-18); BUN/CREATININE RATIO 12.5 (5.4-32.0); CHLORIDE 114 MMOL/L (99-107); CREATININE 0.72 MG/DL (0.60-1.10); GLUCOSE 131 MG/DL (70-104); POTASSIUM 3.7 MMOL/L (3.5-5.1); SODIUM 149 MMOL/L (135-145); TOTAL CARBON DIOXIDE 22.3 MMOL/L (24-32); TOTAL PROTEIN 6.1 G/DL (6.4-8.2); eGFR > 90 ML/MIN
[2020-09-16 20:33] LABS: CALCIUM 7.3 MG/DL (8.5-10.1)
[2020-09-16 20:33] LABS: URINE AMPHETAMINE SCREEN POSITIVE (Neg); URINE BARBITUATE SCREEN NEGATIVE (Neg); URINE BENZODIAZEPINES SCREEN NEGATIVE (Neg); URINE CANNABINOID SCREEN NEGATIVE (Neg); URINE COCAINE SCREEN NEGATIVE (Neg); URINE METHADONE SCREEN NEGATIVE (Neg); URINE OPIATE SCREEN NEGATIVE (Neg); URINE PHENCYCLIDINE SCREEN NEGATIVE (Neg)
[2020-09-16 20:40] LABS: ETHANOL 0.536 GM/DL (0.0-0.010)
--- NOTE | 2020-09-16 20:55 | NUR ---
Dr. Bales is with the patient at this time.
--- NOTE | 2020-09-16 22:21 | NUR ---
Pt had a large amount of urine incontinence. Pt's saturated clothes removed, clean, dry linens and drysorb chux applied. Condom cath applied to collect additonal urine output.
--- NOTE | 2020-09-17 05:41 | NUR ---
DISCUSSED PLAN OF CARE WITH MD VALENTINE. PLAN IS TO KEEP PT TO CONTINUE SOBERING. PT NOW ABLE TO SPEAK IN COMPLETE SENTENCES.
--- NOTE | 2020-09-17 06:45 | NUR ---
PT ASLEEP BUT AROUSABLE, WHEN ASKED HOW ARE YOU FEELING? PT STATES, TERRIBLE AND FELL BACK TO SLEEP.
--- NOTE | 2020-09-17 10:05 | NUR ---
I WAS ASKED TO DISCHARGE PATIENT. PATIETN DIFFICULT TO AROUSE. UPON ATTEMPTING GAIT TEST, PATIENT WAS WOBBLY, UNSTEADY ON FEET AND LEANING ON ME. DR FERNÁNDEZ INFORMED. CHECKED LABS PATIENET'S ETOH [id number] OVER 0.5 AT AROUND 1900 LAST NOC. INFORMED HERMILA CALDERA
--- NOTE | 2020-09-17 10:12 | NUR ---
EXECUTIVE CREATIVE DIRECTOR MARY INFORMED OF PATIENT'S UNSTEADY GAIT
[2020-09-17 11:10] VITALS: BP 137/90
== END 2020-09-17 11:35 | disposition home or self-care (01) ==
LOC: ER 18:17
DX: F10.129 Alcohol abuse with intoxication, unspecified (principal); R41.82 Altered mental status, unspecified; F15.10 Other stimulant abuse, uncomplicated; I10 Essential (primary) hypertension; F12.10 Cannabis abuse, uncomplicated; Z88.0 Allergy status to penicillin; Z79.899 Other long term (current) drug therapy; Y90.9 Presence of alcohol in blood, level not specified
CPT/HCPCS: 36415; 71045; 80053; 80305; 80320; 85025; 96360; 99285; J7030

== ENCOUNTER 2020-10-01 16:32 | Emergency (ER) | payer MEDICAID ==
[~2020-10-01] VITALS: Ht 190.5 cm; Wt 100.9 kg
[2020-10-01 16:55] VITALS: BP 140/92
== END 2020-10-01 20:05 | disposition home or self-care (01) ==
LOC: ER 16:32
DX: F10.20 Alcohol dependence, uncomplicated (principal); F15.20 Other stimulant dependence, uncomplicated; I10 Essential (primary) hypertension; F32.9 Major depressive disorder, single episode, unspecified; F17.200 Nicotine dependence, unspecified, uncomplicated; Z86.69 Personal history of other diseases of the nervous system and sense organs; Z72.89 Other problems related to lifestyle; Z88.0 Allergy status to penicillin; Z79.899 Other long term (current) drug therapy
CPT/HCPCS: 99281

== ENCOUNTER 2021-09-13 09:22 | Emergency (ER) | payer MEDICAID ==
[~2021-09-13] VITALS: Ht 188 cm; Wt 122.7 kg
[2021-09-13 10:34] LABS: BASOPHILS # (AUTO) 0.1 X10'3 (0-0.2); BASOPHILS % (AUTO) 0.6 % (0-1); EOSINOPHILS # (AUTO) 0.1 X10'3 (0-0.9); EOSINOPHILS % (AUTO) 0.9 % (0-6); HEMATOCRIT 45.1 % (42.0-52.0); HEMOGLOBIN 15.4 g/dl (14.0-17.9); LYMPHOCYTES # (AUTO) 1.9 X10'3 (1.1-4.8); LYMPHOCYTES % (AUTO) 16.1 % (21-51); MEAN CORPUSCULAR HEMOGLOBIN 30.5 PG (27.0-31.0); MEAN CORPUSCULAR HGB CONC 34.2 g/dL (33.0-36.5); MEAN CORPUSCULAR VOLUME 89.2 FL (78-98); MEAN PLATELET VOLUME 7.9 FL (7.4-10.4); MONOCYTES # (AUTO) 0.4 X10'3 (0-0.9); MONOCYTES % (AUTO) 3.5 % (2-12); NEUTROPHILS # (AUTO) 9.1 X10'3 (1.8-7.7); NEUTROPHILS % (AUTO) 78.9 % (42-75); PLATELET COUNT 210 X10'3 (140-440); RED BLOOD COUNT 5.05 X10'6 (4.70-6.10); RED CELL DISTRIBUTION WIDTH 13.5 % (11.5-14.5); WHITE BLOOD COUNT 11.6 X10'3 (4.5-11.0)
[2021-09-13 10:55] LABS: ALANINE AMINOTRANSFERASE 45 U/L (12-78); ALBUMIN 3.7 G/DL (3.4-5.0); ALBUMIN/GLOBULIN RATIO 1.2 (1.1-1.5); ALKALINE PHOSPHATASE 95 IU/L (46-116); ANION GAP 14 (8-16); ASPARTATE AMINO TRANSFERASE 37 U/L (10-37); BILIRUBIN,TOTAL 0.9 MG/DL (0.1-1.0); BLOOD UREA NITROGEN 18 MG/DL (7-18); BUN/CREATININE RATIO 22.8 (5.4-32.0); CALCIUM 9.3 MG/DL (8.5-10.1); CHLORIDE 98 MMOL/L (99-107); CREATININE 0.79 MG/DL (0.60-1.10); GLUCOSE 106 MG/DL (70-104); POTASSIUM 3.8 MMOL/L (3.5-5.1); SODIUM 138 MMOL/L (135-145); TOTAL CARBON DIOXIDE 25.7 MMOL/L (24-32); TOTAL PROTEIN 6.9 G/DL (6.4-8.2); eGFR > 90 ML/MIN
[2021-09-13 11:31] LABS: URINE AMPHETAMINE SCREEN NEGATIVE (Neg); URINE BARBITUATE SCREEN NEGATIVE (Neg); URINE BENZODIAZEPINES SCREEN NEGATIVE (Neg); URINE CANNABINOID SCREEN POSITIVE (Neg); URINE COCAINE SCREEN NEGATIVE (Neg); URINE METHADONE SCREEN NEGATIVE (Neg); URINE OPIATE SCREEN NEGATIVE (Neg); URINE PHENCYCLIDINE SCREEN NEGATIVE (Neg)
[2021-09-13] MEDS ORDERED: thiamine 100mg/ml 2ml inj. IV ONE (11:55)
[2021-09-13] MEDS ORDERED: folic acid 1mg/0.2ml inj IV ONE (11:55)
[2021-09-13] MEDS ORDERED: LORazepam 2 mg/ml vial IV ONE (11:55)
[2021-09-13] MEDS ORDERED: normal saline 1000ml 1,000 ML IV ONE (11:55)
[2021-09-13] MEDS ORDERED: chlordiazePOXIDE 25mg capsule PO ONE (12:35)
[2021-09-13] MEDS ORDERED: GABA300C PO (12:53)
[2021-09-13 13:54] VITALS: BP 150/76
== END 2021-09-13 13:58 | disposition home or self-care (01) ==
LOC: ER 09:22
DX: F10.239 Alcohol dependence with withdrawal, unspecified (principal); R11.10 Vomiting, unspecified; I10 Essential (primary) hypertension; F32.9 Major depressive disorder, single episode, unspecified; F15.90 Other stimulant use, unspecified, uncomplicated; Z72.89 Other problems related to lifestyle; Z86.69 Personal history of other diseases of the nervous system and sense organs; Z88.0 Allergy status to penicillin; Z79.899 Other long term (current) drug therapy; Y90.9 Presence of alcohol in blood, level not specified
CPT/HCPCS: 36415; 80053; 80305; 85025; 96361; 96374; 96375; 99284; J2060; J3411; J3490; J7030

== ENCOUNTER 2021-10-06 14:22 | Emergency (ER) | payer MEDICAID ==
[~2021-10-06] VITALS: Ht 190.5 cm; Wt 113.6 kg
[~2021-10-06 14:22] MED LIST changes: +GABA300C PO
[2021-10-06 14:56] VITALS: BP 157/106
[2021-10-06] MEDS ORDERED: LORA-269 PO (15:03)
[2021-10-06] MEDS ORDERED: GABA-530 PO (15:03)
== END 2021-10-06 15:45 | disposition home or self-care (01) ==
LOC: ER 14:22
DX: F10.129 Alcohol abuse with intoxication, unspecified (principal); F15.10 Other stimulant abuse, uncomplicated; I10 Essential (primary) hypertension; F31.9 Bipolar disorder, unspecified; F17.200 Nicotine dependence, unspecified, uncomplicated; Z86.69 Personal history of other diseases of the nervous system and sense organs; Z72.89 Other problems related to lifestyle; Z88.0 Allergy status to penicillin; Z79.899 Other long term (current) drug therapy; Y90.9 Presence of alcohol in blood, level not specified
CPT/HCPCS: 99283

== ENCOUNTER 2021-10-20 20:10 | Emergency (ER) | payer MEDICAID ==
[~2021-10-20] VITALS: Ht 190.5 cm; Wt 120.9 kg
[~2021-10-20 20:10] MED LIST changes: +GABA-530 PO; +LORA-269 PO
[2021-10-20 21:11] VITALS: BP 157/79
== END 2021-10-21 00:37 | disposition home or self-care (01) ==
LOC: ER 20:11
DX: Z02.89 Encounter for other administrative examinations (principal); F10.20 Alcohol dependence, uncomplicated; I10 Essential (primary) hypertension; F31.9 Bipolar disorder, unspecified; F15.90 Other stimulant use, unspecified, uncomplicated; Z86.69 Personal history of other diseases of the nervous system and sense organs; Z72.89 Other problems related to lifestyle; Z88.0 Allergy status to penicillin; Z79.899 Other long term (current) drug therapy
CPT/HCPCS: 99281

== ENCOUNTER 2022-05-10 06:06 | Emergency (ER) | payer MEDICAID ==
[~2022-05-10] VITALS: Ht 188 cm; Wt 109.1 kg
[2022-05-10 06:17] VITALS: BP 168/99
[2022-05-10] MEDS ORDERED: OLANZapine 2.5MG tablet PO SCH (08:00)
[2022-05-10 08:24] LABS: BASOPHILS % (AUTO) 0.4 % (0-1); EOSINOPHILS # (AUTO) 0.1 X10'3 (0-0.9); EOSINOPHILS % (AUTO) 0.8 % (0-6); HEMATOCRIT 39.3 % (42.0-52.0); HEMOGLOBIN 13.6 g/dl (14.0-17.9); LYMPHOCYTES # (AUTO) 1.9 X10'3 (1.1-4.8); LYMPHOCYTES % (AUTO) 19.9 % (21-51); MEAN CORPUSCULAR HGB CONC 34.6 g/dL (33.0-36.5); MEAN CORPUSCULAR VOLUME 89.6 FL (78-98); MEAN PLATELET VOLUME 8.2 FL (7.4-10.4); MONOCYTES % (AUTO) 10.3 % (2-12); NEUTROPHILS # (AUTO) 6.7 X10'3 (1.8-7.7); NEUTROPHILS % (AUTO) 68.6 % (42-75); PLATELET COUNT 215 X10'3 (140-440); RED BLOOD COUNT 4.38 X10'6 (4.70-6.10); RED CELL DISTRIBUTION WIDTH 13.9 % (11.5-14.5); WHITE BLOOD COUNT 9.8 X10'3 (4.5-11.0)
[2022-05-10 08:36] LABS: ALANINE AMINOTRANSFERASE 27 U/L (12-78); ALBUMIN 3.8 G/DL (3.4-5.0); ALBUMIN/GLOBULIN RATIO 1.2 (1.1-1.5); ALKALINE PHOSPHATASE 93 IU/L (46-116); ANION GAP 14 (8-16); ASPARTATE AMINO TRANSFERASE 24 U/L (10-37); BILIRUBIN,TOTAL 1.1 MG/DL (0.1-1.0); BLOOD UREA NITROGEN 23 MG/DL (7-18); BUN/CREATININE RATIO 22.3 (5.4-32.0); CALCIUM 8.4 MG/DL (8.5-10.1); CHLORIDE 103 MMOL/L (99-107); CREATININE 1.03 MG/DL (0.60-1.10); GLUCOSE 95 MG/DL (70-104); POTASSIUM 3.5 MMOL/L (3.5-5.1); SODIUM 139 MMOL/L (135-145); TOTAL CARBON DIOXIDE 21.7 MMOL/L (24-32); TOTAL PROTEIN 6.9 G/DL (6.4-8.2); eGFR 85 ML/MIN
[2022-05-10 13:09] LABS: CLARITY,URINE CLEAR (Clear); COLOR,URINE YELLOW (Yellow); GLUCOSE, URINE NEGATIVE (Neg); KETONES,URINE 15 mg/dl (Neg); LEUKOCYTE ESTERASE ,URINE NEGATIVE (Neg); NITRITES, URINE NEGATIVE (Neg); OCCULT BLOOD,URINE NEGATIVE (Neg); PH,URINE 5.5 (4.8-8.0); PROTEIN,URINE TRACE mg/dl (Neg); UROBILINOGEN,URINE 0.2 E.U/dL (0.2-1.0)
[2022-05-10 13:15] LABS: URINE AMPHETAMINE SCREEN POSITIVE (Neg); URINE BARBITUATE SCREEN NEGATIVE (Neg); URINE BENZODIAZEPINES SCREEN NEGATIVE (Neg); URINE CANNABINOID SCREEN POSITIVE (Neg); URINE COCAINE SCREEN NEGATIVE (Neg); URINE METHADONE SCREEN NEGATIVE (Neg); URINE OPIATE SCREEN NEGATIVE (Neg); URINE PHENCYCLIDINE SCREEN NEGATIVE (Neg)
[2022-05-10 13:23] LABS: UA COLLECTION TYPE CLN CATCH MIDSTREAM
[2022-05-10 13:24] LABS: HYALINE CASTS >30 /LPF (NEGATIVE); MUCUS STRANDS MODERATE /LPF (Neg); SQUAMOUS EPITHELIAL CELL,UR FEW /LPF (FEW)
[2022-05-10 13:25] LABS: SPERM MODERATE /HPF (NEGATIVE)
[2022-05-10 13:26] LABS: AMORPHOUS URATES 1+; BACTERIA,URINE FEW /HPF (Neg); RBC,URINE 0-2 /HPF (0-2); WBC,URINE 0-4 /HPF (0-4)
[2022-05-10] MEDS ORDERED: BUSP10TA3 PO (14:25)
[2022-05-10] MEDS ORDERED: UNABLE TO OBTAIN (14:31)
== END 2022-05-10 15:47 ==
LOC: ER 06:07
DX: R45.850 Homicidal ideations (principal); F15.10 Other stimulant abuse, uncomplicated; I10 Essential (primary) hypertension; F31.9 Bipolar disorder, unspecified; F17.200 Nicotine dependence, unspecified, uncomplicated; Z88.0 Allergy status to penicillin; Z79.899 Other long term (current) drug therapy
CPT/HCPCS: 36415; 70450; 80053; 80305; 81001; 84443; 85025; 99285; A6250